=== PATIENT | male | born 1930 | race Caucasian/White ===

== ENCOUNTER 2016-11-10 23:39 | Inpatient (IN) | payer MEDICARE, OTHER ==
--- NOTE | ~2016-11-10 | DS ---
Discharge Summary [address] [place]. [address] NAME: HAVEN SHANKS : [birth year] STATUS : DIS IN PAT#: [id number] AGE: 85 ADM/REG DATE : 11/11/16 MR#: [id number] REPORT SERV DATE: 12/07/16 DICTATED BY: GREG ROONEY DATE: 12/06/16 REPORT STATUS : Draft TRANSCRIBED BY: MODL DATE: 12/06/16 ADMISSION DATE: 11/11/2016 DISCHARGE DATE: 12/06/2016 DISCHARGE DIAGNOSES: 1. Recurrent bilateral aspiration pneumonia. 2. Acute on chronic hypoxic respiratory failure. 3. Oropharyngeal dysphagia. 4. Severe chronic obstructive pulmonary disease. 5. Acute exacerbation of chronic pulmonary disease. 6. Type 2 diabetes mellitus with periods of hyperglycemia and hypoglycemia, currently stable. 7. Anemia of chronic disease. 8. Anemia of acute blood loss. 9. Occult blood gastrointestinal bleeding. 10.Paroxysmal atrial fibrillation. 11.Acute kidney injury, now resolved. 12.Depression. 13.Frailty. 14.Debility. 15.Cognitive impairment, most likely dementia. 16.Hearing impairment. 17.Lung mass to be followed in the outpatient setting by Dr. Solomon Fleming. 18.Coronary artery disease, status post CABG. 19.Osteoarthritis. CONSULTANTS DURING THIS HOSPITALIZATION: 1. Kiran Thompson M.D., of Pulmonology. 2. Chris Spence M.D., of Gastroenterology. INVASIVE PROCEDURES DONE DURING THIS HOSPITALIZATION: None. HISTORY OF PRESENT ILLNESS: The patient is an 85-year-old male, admitted to the hospital with altered mental status. For detailed history and physical exam, please see note dictated by Dr. Tom Vo on 11/11/2016. HOSPITAL COURSE: After being admitted to the hospital, initially this patient was seen by Dr. Errol Cervantes. Please refer to interim summary dictated by Dr. Cervantes on 11/18/2016. Then this patient was seen by Syed Reynolds NP, along with Dr. Nikolas Brown. Please refer to interim summary dictated by Syed Reynolds NP, on 11/26/2016. Then this patient was followed by Dr. Chris Champagne. Please refer to interim summary dictated by Dr. Champagne on 12/02/2016. I took over this patient's care on 12/04/2016. This patient was doing relatively well. He is still requiring 5 L of O2. His pneumonia had been treated with 8 days of IV vancomycin and Zosyn. So we have discontinued his antibiotics. He remained fever free. His white count is normal. His blood count has remained stable. We did give him 1 unit of PRBC just to help him get more oxygenation. I had a long discussion Discharge Summary [address] [place]. [address] NAME: HAVEN SHANKS : [birth year] STATUS : DIS IN PAT#: [id number] AGE: 85 ADM/REG DATE : 11/11/16 MR#: [id number] REPORT SERV DATE: 12/07/16 DICTATED BY: GREG ROONEY DATE: 12/06/16 REPORT STATUS : Draft TRANSCRIBED BY: MONICO DATE: 12/06/16 with the daughter who did not want the patient to go to a longterm facility. This patient did well with Physical Therapy. So we recommended rehab. [facility] the patient based on his oxygen requirement. However, [facility] was able to manage it because his oxygen requirement now is down to about 4 L. He is tolerating a diet. He remained stable otherwise and is being discharged in stable condition. DISCHARGE DISPOSITION: To rehab. DISCHARGE ACTIVITY: Per facility. DISCHARGE DIET: Low sodium, 1800-calorie [employer] diet. DISCHARGE MEDICATIONS: Cymbalta 60 mg once daily, Lipitor 40 mg once daily, Cardizem CD 180 mg once daily, Colace 100 mg twice daily, NovoLog 6 units subcu prior to each meal and sliding scale, Lantus 25 units subcu once daily, MiraLax one packet with 8 ounces of water daily, Florastor one capsule twice daily, multivitamins one tablet daily, Namenda 10 mg twice daily, [place]-3 fish oil 1000 mg capsule daily, Brovana 15 mcg neb twice daily, Pulmicort 1 mg neb twice daily, DuoNeb q.4 hours while awake, Crestor 20 mg once at bedtime, aspirin 81 mg daily, ramipril 2.5 mg p.o. daily, tinidazole 250 mg as directed, vitamin D 1000 units once daily. DISCHARGE FOLLOWUP: With Dr. Esteban Caro, post rehab. More than 35 minutes spent planning this patient's discharge, reconciling medications, writing prescriptions, discussing hospital care, and followup with the patient, with the daughter over the phone, and arranging proper discharge and documenting this discharge. RUTHANN/MONICO Greg Rooney M.D. / [id number] CC: Tejinder You D.O. Froilan B. Joves, MD Christopher S Chandler, NP David Dodson, M.D. [facility]
--- NOTE | ~2016-11-10 | IDS ---
Interim Discharge Summary [facility] [address] [place]. [address] NAME: HAVEN SHANKS : [birth year] STATUS : [facility] [id number] AGE: 85 ADM/REG DATE : 11/11/16 MR#: [id number] REPORT SERV DATE: 12/02/16 DICTATED BY: MELVIN CHAMPAGNE DATE: 12/02/16 REPORT STATUS : Draft TRANSCRIBED BY: MODL DATE: 12/02/16 ADMISSION DATE: 11/11/2016 DISCHARGE DATE: Interim period 11/27/2016 through 12/02/2016. CURRENT DIAGNOSES: 1. Recurrent bilateral aspiration pneumonia. 2. Acute on chronic hypoxemic respiratory failure. 3. Oropharyngeal dysphagia. 4. Severe chronic obstructive pulmonary disease. 5. Acute exacerbation of chronic obstructive pulmonary disease with aspiration. 6. Type 2 diabetes with periods of hyperglycemia and hypoglycemia, current improved blood sugar control off basal insulin. 7. Anemia of chronic disease. 8. Acute blood loss anemia. 9. Occult gastrointestinal bleeding. 10.Paroxysmal atrial fibrillation. 11.Acute kidney injury, improved. 12.Depression. 13.Frailty. 14.Debility. 15.Cognitive impairment. 16.Hearing impairment. 17.Lung masses to be followed by outpatient early childhood associate, Dr. Parker Fleming, per previous discussions documented in record. 18.Coronary artery disease, post CABG. 19.Osteoarthritis, both peripheral and axial. INTERIM SUMMARY: When initially seen by the undersigned on 11/27/2016, he had no cough or dyspnea and had no pain complaints. He did have some anorexia. He had received during his hospitalization five days of Zithromax, three days of Rocephin, and nine days of Zosyn having been off since 11/22/2016 after clinical improvement of his initial aspiration pneumonia. Disposition plans to rehab were pending. On 11/27/2016, his procalcitonin had increased to 3.65, last being 0.18 on 11/19/2016. In addition, his white blood cell count was 14,000 having been 8.5 on 11/23/2016. A chest x- ray showed slight increase in bilateral infiltrates primarily in the perihilar regions. It was felt that he had a recurrent aspiration pneumonia. Cultures were obtained. He was started on broad-spectrum antimicrobial therapy with vancomycin and Zosyn. Over the course of this interim, he has felt about the same although communication is hindered by significant hearing impairment. His procalcitonin has fallen to 2.3 today and Interim Discharge Summary [address] [address] NAME: HAVEN SHANKS : [birth year] STATUS : ADM IN PAT#: [id number] AGE: 85 ADM/REG DATE : 11/11/16 MR#: [id number] REPORT SERV DATE: 12/02/16 DICTATED BY: MELVIN CHAPMAGNE DATE: 12/02/16 REPORT STATUS : Draft TRANSCRIBED BY: MODShane DATE: 12/02/16 white blood cell count 5.7. His chest x-ray shows mild improvement. His blood cultures done on the 11/27/2016 were no growth. Current plan is to complete seven days of antimicrobial therapy. Speech Therapy was reconsulted for recommendations due to my concern for re-aspiration. Additional measures were provided. He developed some periods of hypoglycemia with basal insulin use. Basal insulin has been discontinued. Blood sugar control is satisfactory. Initial disposition planning had been for [facility] when last seen by them on 11/27/2016. No beds were available on 11/27/2016 or 11/28/2016. A re-update is planned for 12/03/2016 given his current level of improvement. DD/MONICO Melvin Champagne M.D. / [id number] CC: Tejinder Beckett D.O.
--- NOTE | ~2016-11-10 | CN ---
Consultation Report [address] [place]. [address] NAME: HAVEN SHANKS : [birth year] STATUS : ADM IN PAT#: [id number] AGE: 85 ADM/REG DATE : 11/11/16 MR#: [id number] REPORT SERV DATE: 11/17/16 DICTATED BY: MELVIN GARCIA DATE: 11/17/16 REPORT STATUS : Draft TRANSCRIBED BY: MODShane DATE: 11/17/16 CONSULTATION NOTE DATE OF CONSULTATION: ATTENDING PHYSICIAN: Dr. Rooney. HISTORY OF PRESENT ILLNESS: This is an 85-year-old male, I am seeing for Dr. Zeus Ruff, admitted with encephalopathy, UTI, history of dementia, also he has been found to have pneumonia on CT, he has COPD on home O2, he is diabetic, past history of CVA, history of Hepatitis C, history of coronary artery disease, status post CAB, he has had knee, and hand surgery in the past. SOCIAL HISTORY: Negative EtOH and nicotine. FAMILY HISTORY: Negative for colon cancer. LABORATORY DATA: Hemoglobin on admission was 12.9, dropped down to 10.4, then back up to 11.7, and down 10.4. And then down to 9.5, and then 9.0 today. Stool guaiacs were checked and were positive. He has had a brown stool with no GI complaints. He has passed a swallowing study. His white count is 9000, platelets 156,000. Acute renal insufficiency that is improved. PHYSICAL EXAMINATION: GENERAL: Demented, but alert white male. HEENT: Anicteric. NECK: Negative. CHEST: Scattered rhonchi. HEART: Regular rate and rhythm without murmur or gallop. ABDOMEN: Soft and nontender. Bowel sounds are active. EXTREMITIES/NEUROLOGIC: Pertinent for his dementia. ASSESSMENT: 1. Urinary tract infection. 2. Dementia. 3. Pneumonia. 4. Coronary artery disease, status post CAB. 5. Diabetes mellitus. 6. Hepatitis C. 7. Past history of Clostridium difficile. 8. Chronic obstructive pulmonary disease on home O2. 9. Anemia with decreasing H and H, brown stool, guaiac positive. SUGGESTION: Consultation Report [address] [address] NAME: HAVEN SHANKS : [birth year] STATUS : ADM IN PAT#: [id number] AGE: 85 ADM/REG DATE : 11/11/16 MR#: [id number] REPORT SERV DATE: 11/17/16 DICTATED BY: MELVIN GARCIA DATE: 11/17/16 REPORT STATUS : Draft TRANSCRIBED BY: MONICO DATE: 11/17/16 1. We will begin Protonix. 2. Follow up H and H. 3. Continue followup stool and for any symptoms. 4. Consider possibly an EGD depending on the above. We will continue to follow with you. CALVIN/MONICO Melvin Garcia M.D. / [id number] CC: MD Esteban Howe D.O. Henry Paik, M.D. Subhash Virani, M.D.
--- NOTE | ~2016-11-10 | CN ---
Consultation Report [facility] [address] [place]. [address] NAME: HAVEN HUBER : [birth year] STATUS : ADM IN [facility]#: [id number] AGE: 85 ADM/REG DATE : 11/11/16 MR#: [id number] REPORT SERV DATE: 11/21/16 DICTATED BY: LM THOMPSON IV DATE: 11/21/16 REPORT STATUS : Draft TRANSCRIBED BY: MODL DATE: 11/21/16 PULMONARY CONSULTATION. DATE OF CONSULTATION: 11/21/2016 REQUESTING PHYSICIAN: Dr. Reynolds. REASON FOR REQUEST: Nodular pulmonary infiltrates. HISTORY OF PRESENT ILLNESS: History was obtained from the records and somewhat from the patient. I attempted to contact family on their phones and there was no answer with the calls immediately going to voicemail or answering machine. Mr. Huber is an 85-year-old [place] male with a history of coronary artery disease, diabetes mellitus, COPD, dementia, reported hepatitis C, and past C diff colitis, who was admitted with worsening encephalopathy with findings of an Enterococcus and Proteus urinary tract infection, now with abnormal chest CT scan and enlarging left pleural effusion. The patient was admitted on 11/11 with worsening of his baseline mental status. He had previously had similar symptoms and was secondary to urinary tract infection for which the daughter initiated ciprofloxacin. He initially got slightly better, though continued to have worsening encephalopathy for which he was brought to the emergency room. He had urine that was consistent with an infection with subsequently growing Enterococcus and ESBL Proteus for which he was initiated initially on ceftriaxone and azithromycin for a left lower lobe infiltrate, switched to Zosyn. He did complete five days of azithromycin therapy. He continued to have worsening infiltrate on chest radiograph for which a chest CT scan was obtained, which demonstrated a lobulated nodule in the left upper lobe with very severe emphysematous changes. A somewhat loculated left greater than right pleural effusion and atelectasis or infiltrates with two nodular densities at the right base. A repeat CT scan was obtained four days later, which demonstrated the persistent nodular densities possibly slightly worse at the right base with increasing loculated left pleural effusion. We are asked to comment on the current findings. The patient clinically has improved with less encephalopathy. He has never had an elevated white blood cell count nor an elevated procalcitonin level. He reports no use of supplemental oxygen, however, the records state he is on supplemental oxygen at home. Listed on his medications are no bronchodilator medications. PULMONARY HISTORY: Remarkable for no history of childhood asthma, known adult obstructive lung disease, or previous pneumonia. He has a 60-pack year smoking history, having quit by his report 10 years ago. He is unsure about his immunization status. PAST MEDICAL HISTORY: 1. Coronary artery disease. 2. Diabetes mellitus. 3. COPD. 4. Hepatitis C. Consultation Report [address] [place]. [address] NAME: HAVEN HUBER : [birth year] STATUS : ADM IN PAT#: [id number] AGE: 85 ADM/REG DATE : 11/11/16 MR#: [id number] REPORT SERV DATE: 11/21/16 DICTATED BY: LM THOMPSON IV DATE: 11/21/16 REPORT STATUS : Draft TRANSCRIBED BY: MONICO DATE: 11/21/16 5. C diff colitis in the past. 6. Dementia. SURGERIES: He has had, 1. Coronary artery bypass grafting. 2. Bilateral knee replacements. 3. Left hand surgery. ALLERGIES: LISTED ARE AMBIEN AND ARICEPT, THOUGH THE SPECIFIC REACTIONS ARE NOT DOCUMENTED. CURRENT MEDICATIONS: Cardizem CD 180 mg daily, Colace 100 mg twice a day, Cymbalta 60 mg daily, DuoNebs every four hours, Florastor one twice a day, Humibid 600 mg q.8 hours, Levemir 25 units at bedtime, Lipitor 40 mg daily, MiraLAX one packet daily, Namenda 10 mg twice a day, NovoLog six units before meals, level 2 insulin sliding scale, Protonix 40 mg daily, Senokot two tabs daily, multivitamin daily, Zosyn 3.375 g q.8 hours. SOCIAL HISTORY: Remarkable for the tobacco use as above. The patient denies alcohol or illicit drug use. He is and lives with his daughter. FAMILY HISTORY: Remarkable for several members listed as diabetes and the patient cannot expand on this. REVIEW OF SYSTEMS: 14 systems reviewed and pertinent positives as noted above. PHYSICAL EXAMINATION: GENERAL: This is a pleasant elderly [place]ron[place] male, in no current respiratory distress. He does have a junky cough. VITAL SIGNS: Temperature 98.1, respiratory rate is 20, saturations 91% on 3 L via nasal cannula, pulse is 86, and blood pressure 131/59. HEENT: Normocephalic, atraumatic. Extraocular movements are intact. Pupils react to light. Sclerae and conjunctivae normal. He has a nasal cannula in place. He has a Mallampati III airway with some narrowing of the posterior pharyngeal space. NECK: Without any palpable lymphadenopathy or thyromegaly. CHEST: The patient has decreased breath sounds at both apices. There are decreased breath sounds at the bases. There are some inspiratory crackles with bronchial breath sounds in the left base. No current wheezes are noted. CARDIOVASCULAR: Jugular venous pulsations are at the angle of jaw in the supine position. He has 1+ carotid upstrokes with no obvious bruit. He has a distant regular S1, S2 with a 2/6 systolic murmur at the left sternal border. No clear S3 is noted. Peripheral pulses are diminished. ABDOMEN: Soft and nontender. There are hypoactive bowel sounds. There is no palpable hepatosplenomegaly or mass. EXTREMITIES: Demonstrate scars over both knees. There is no cyanosis, clubbing, or palpable cords. Consultation Report [address] [place]. [address] NAME: HAVEN HUBER : [birth year] STATUS : ADM IN [facility]#: [id number] AGE: 85 ADM/REG DATE : 11/11/16 MR#: [id number] REPORT SERV DATE: 11/21/16 DICTATED BY: LM THOMPSON IV DATE: 11/21/16 REPORT STATUS : Draft TRANSCRIBED BY: MONICO DATE: 11/21/16 NEUROLOGIC: The patient is able to move extremities and answer some simple questions. He knows his name. He knows past history, though he does not know where he is or the date. LABORATORY DATA: Chest CT scan demonstrates the increasing partially loculated left pleural effusion. There is infiltrate and atelectasis at both bases, left greater than right. There is a lobulated nodule in the left upper lobe, not noted on a [address] scan. CBC: Hemoglobin 8.3, hematocrit 25.4, platelet count was 240,000, white blood cell count 7.5. Chemistry: Sodium 146, potassium 4.7, chloride 111, bicarb 26, BUN 24, creatinine 1.34, glucose 178. Liver panel is otherwise remarkable for an AST of 50. TSH was normal at 1.67. ASSESSMENT AND PLAN: 1. Respiratory. The patient has severe emphysematous changes noted on the CT scan. DuoNebs will be given via EzPAP q.4 hours while awake and q.4 hours as needed. We will add Brovana unit dose twice a day and Pulmicort twice a day 1 mg. Chest x-ray will be obtained tomorrow to evaluate for the pleural fluid. Family will need to decide how aggressive we want to be with the patient to include putting the patient through a thoracentesis. We will recommend following the nodular infiltrates, which very well could be malignancy particularly the left upper lobe, however, it could represent nodular pneumonia. With the patient's comorbid illnesses, I would not proceed to biopsy particularly at this time. Oxygen will be provided as needed to maintain saturation in the 90% to 94% range. 2. Gastrointestinal. Head of bed at 30 to 45 degrees. I am concerned that some of this could represent aspiration particularly prior to use of the thickening products. The patient needs to be completely upright when eating and have assistance. 3. Infectious Disease. Would complete eight days of Zosyn particularly with a non- elevated white blood cell count or procalcitonin level. Urine antigen sent for Legionella as well as Pneumococcus. TB QuantiFERON test will be obtained with his nationality as well as fighting in World War II and the [place] War. 4. Cardiovascular. BNP will be obtained, though I do not believe this is volume overload. 5. Neurologic. Ammonia and B12 levels will be obtained. 6. Hematologic. Heparin subcutaneous for deep vein thrombosis prophylaxis. 7. Endocrinologic. We will continue to adjust insulin and attempt to keep blood sugars less than 160 because of his infection. Thank you for consulting us. We will follow the patient with you. NM/MODL mL Thompson IV, M.D. / [id number] Consultation Report [address] [place]. [address] NAME: HAVEN HUBER : [birth year] STATUS : ADM IN [facility]#: [id number] AGE: 85 ADM/REG DATE : 11/11/16 MR#: [id number] REPORT SERV DATE: 11/21/16 DICTATED BY: LM THOMPSON IV DATE: 11/21/16 REPORT STATUS : Draft TRANSCRIBED BY: MONICO DATE: 11/21/16 CC: Tejinder Barrera D.O.
--- NOTE | ~2016-11-10 | IDS ---
Interim Discharge Summary [facility] [address] [place]. [address] NAME: HAVEN SHANKS : [birth year] STATUS : ADM IN PAT#: [id number] AGE: 85 ADM/REG DATE : 11/11/16 MR#: [id number] REPORT SERV DATE: 11/26/16 DICTATED BY: SYED RICHARDSON DATE: 11/26/16 REPORT STATUS : Draft TRANSCRIBED BY: MODL DATE: 11/26/16 ADMISSION DATE: 11/11/2016 DISCHARGE DATE: CURRENT INTERIM DIAGNOSES: 1. Pneumonia, bilateral, present on admission that is resolving, it is likely aspiration pneumonia. 2. Left pleural effusion, status post thoracentesis performed on 11/23/2016, 400 mL of fluid removed. 3. Severe emphysema. 4. Anemia of chronic and also blood loss with positive Hemoccult. 5. Dementia. 6. Diabetes type 2. 7. Acute kidney injury, resolved. Most recent creatinine is 1.11. HISTORY OF PRESENT ILLNESS: This is a pleasant unfortunate 85-year-old gentleman who presented with altered mental status. Please see the initial H and P of Dr. Tom Vo as the patient was admitted to the Hospitalist Service for further evaluation and treatment. Please also see the interim discharge summary of Dr. Murillo as this interim summary will cover the dates of 11/19 until 11/26/2016. CONSULTANTS DURING THIS ADMISSION: Include GI, Dr. Chris Spence; Pulmonary Service, Dr. Thompson. CONTINUATION TO HOSPITAL COURSE: The patient had undergone a CT of the chest showing continued dense consolidation throughout the left lower lobe and posterior right lower lobe, also a mass-like opacity in the posterior lateral aspect of the right upper lobe, and findings concerning for potential underlying primary lung malignancies or inflammation. A moderate loculated left pleural effusion predominantly adjacent to the left upper lobe, severe emphysema in the lungs. The patient was currently undergoing IV antibiotic treatment with Zosyn, this was continued. Also a consult was placed to Pulmonary Services for further evaluation of his persistent pneumonia and consideration for thoracentesis as well. He did have a concern and is high risk for aspiration that is likely predisposing him to inflammation and pneumonia. I did discuss with the family the findings of the CT scan and had a lengthy discussion with the daughter in regard to pursuing thoracentesis, and she wished that I speak with Dr. Parker Fleming, the patient's outpatient bed maker, which I did and he agreed with a thoracentesis at this time, and so patient was sent for the CT-guided thoracentesis in Interventional Radiology where 400 mL was removed and sent for cytology and fluid culture. His antibiotics were after discussion with Dr. Thompson, discontinued given that the patient was afebrile and his white blood cells are within normal limits and a procalcitonin of 0.18. He was continued on nebulizers and aggressive pulmonary toilet and aspiratory precautions and continued to improve symptomatically after the thoracentesis. He had been evaluated by GI, who did not recommend any further procedures during this admission. His hemoglobin and hematocrit have been low, but stable, and most recently, hemoglobin and hematocrit of 8.7 and 27.3. He is currently being evaluated for Siskin SubAcute and hopefully to have a bed soon. I have decided to trial him on a very low-dose Interim Discharge Summary [address] [address] NAME: HAVEN SHANKS : [birth year] STATUS : ADM IN [facility]#: [id number] AGE: 85 ADM/REG DATE : 11/11/16 MR#: [id number] REPORT SERV DATE: 11/26/16 DICTATED BY: SYED RICHARDSON DATE: 11/26/16 REPORT STATUS : Draft TRANSCRIBED BY: MODL DATE: 11/26/16 diuretic of torsemide and continue aspiration precautions and continue mobilization, and aggressive pulmonary toilet as he has completed his antibiotic course. Of note, patient is extremely hard of hearing as well and currently pending approval for Siskin SubAcute and will follow up with his bed maker Dr. Parker Fleming in six to eight weeks. [facility] Syed Richardson NP / [id number] CC: MD Esteban Layton II, D.O.
--- NOTE | ~2016-11-10 | IDS ---
Interim Discharge Summary [facility] [address] [place]. [address] NAME: HAVEN SHANKS : [birth year] STATUS : [facility]#: [id number] AGE: 85 ADM/REG DATE : 11/11/16 MR#: [id number] REPORT SERV DATE: 11/18/16 DICTATED BY: DATE: REPORT STATUS : Draft TRANSCRIBED BY: MODL DATE: 11/18/16 ADMISSION DATE: 11/11/2016 DISCHARGE DATE: CURRENT INTERIM DISCHARGE DIAGNOSES: 1. Chronic hypoxemia. 2. Acute kidney injury. 3. Extended spectrum beta-lactamase urinary tract infection. 4. Diabetes mellitus type 2. 5. Left lower lobe pneumonia. 6. Anemia. 7. Alzheimer's dementia. 8. Chronic obstructive pulmonary disease. 9. Gastrointestinal bleed. 10.Coronary artery disease, status post coronary artery bypass graft. 11.History of hepatitis C. 12.History of Clostridium difficile. 13.Chronic thrombocytopenia. HISTORY OF PRESENT ILLNESS: This is an 85-year-old gentleman with a history of coronary artery disease, diabetes, COPD, and Alzheimer's dementia who presents with altered mental status. The patient does live with his daughter and son-in-law. The patient started developing altered mental status three to four days prior to admission. The patient had a urinalysis done upon admission which showed he had ESBL and his chest x-ray showed that he had a left lower lobe community-acquired pneumonia. The patient is oxygen dependent on 2 to 3 L at home. PROCEDURES AND IMAGIN. 11/13/2016, CT of the abdomen and pelvis without contrast, showed no evidence of GI or obstruction with borderline cardiomegaly and probable anemia. The patient had bilateral infiltrates and a recommendation was made to follow after clearing to exclude a tumor in the left lung base. On 11/10/2016, a portable chest x-ray showed a left perihilar and left lung base infiltrate. The patient has had blood cultures done x4 days that have been negative. On 11/15/2016, CT of the chest without contrast showed extensive airspace disease with consolidation in both lower lobes, left greater than right. The findings may be related to pneumonia or aspiration. 2. Additional nodular opacities in the right lower lobe and in the left upper lobe. The patient has had three stools for guaiac that have been positive, and the patient has been having his hemoglobin trending downwards. His initial hemoglobin upon admission was 12.9 and it is now down to 8.5. GI was consulted on 11/17/[address] Spence, who has seen the patient, but is hesitant to do any aggressive treatment due to the patient's age and multiple comorbidities. In the last four days, the patient's hemoglobin has gone from 10.4 to 9.5 to 9.0 to 8.5. The patient has not received any IV fluids besides his antibiotics during this time. There has been some difficulty stabilizing his blood sugar due to the patient's volatile intake. When Levemir insulin was increased, the patient then had a mild hypoglycemic event in the 60s due to fact Interim Discharge Summary [address] [address] NAME: HAVEN SHANKS : [birth year] STATUS : ADM IN PAT#: [id number] AGE: 85 ADM/REG DATE : 11/11/16 MR#: [id number] REPORT SERV DATE: 11/18/16 DICTATED BY: DATE: REPORT STATUS : Draft TRANSCRIBED BY: MODL DATE: 11/18/16 that he did not eat supper. We are attempting to give with meal insulin and giving a lower dose of Levemir to prevent this happening during the night. The patient is on Namenda for his Alzheimer's dementia. The patient is on chronic Florastor for his history of C. diff. The patient is currently on Zosyn to cover his pneumonia and his UTI. 3. The patient's chest x-ray on 11/18/2016 showed increased consolidation and/or pleural effusion of the left base. 4. The patient is on aspiration precautions following a swallow study that was done on 11/15/2016 which advised mechanical soft diet with chopped ground meats with gravy and nectar thick liquids. The patient is also to use only normal size straws. Due to the patient's increased pneumonia, despite Zosyn, we are getting a modified barium swallow on 11/19/2016 to reassess his swallowing status. Multiple attempts to have been made to contact the family, messages have been left on home phone and cell phones to have return phone call to try to ascertain the patient's code status due to his declining hemoglobin and overall health status. The patient was initially started on Rocephin and Zithromax for his UTI, but was then changed on 11/13/[address] Rooney. The patient has been taken care of by Dr. Yasmany Amin 11/10/2016 and 11/11/2016, Dr. Greg Rooney 11/12/2016, Dr. Champagne 11/13/2016, Rochelle Traylor, nurse-practitioner on 11/14/2016 and 11/15/2016 and 11/16/2016. The patient has been taken care of by myself, Love Marroquin, from 11/17/2016 through 11/19/2016. The patient is able to get up to a chair with one to assist. We will follow the modified barium swallow study and continue trying to contact the patient's family regarding the patient's code status and possible need for palliative care versus hospice either in the home setting or the patient in a skilled facility. The patient's procalcitonin is 0.93 at this time. SLC/MODL Love Marroquin NP / [id number] CC: MD Esteban Howe D.O.
--- NOTE | ~2016-11-10 | HP ---
History And Physical [facility] [id number] [place]. [address] NAME: HAVEN SHANKS : [birth year] STATUS : [facility]M [facility]#: [id number] AGE: 85 ADM/REG DATE : 11/11/16 MR#: [id number] REPORT SERV DATE: 11/11/16 DICTATED BY: TOM VO DATE: 11/11/16 REPORT STATUS : Draft TRANSCRIBED BY: MODL DATE: 11/11/16 DATE OF ADMISSION: 11/11/2016 CHIEF COMPLAINT: Altered mental status. HISTORY OF PRESENT ILLNESS: This is an 85-year-old gentleman with a history of coronary disease, diabetes, COPD, and dementia, presenting with an altered mental status. The patient was not able to provide any valuable history, and the patient's son-in-law who was at bedside who provided the history. I also carefully reviewed existing medical records. The patient apparently developed altered mental status since about 3 to 4 days ago. It appeared as though the patient was living in the past, trying to get ready to go to work, and the patient did not recognize the son-in-law. The patient at the same time was quite shaky. The patient's daughter remembered that he was similar when he had urinary tract infection in the past, and the family happened to have some Cipro at home and thus they started the patient on Cipro on their own. The patient seemed to have gotten slightly better, but the patient still continued to be encephalopathic, and thus family decided to bring him to the ER for further evaluation and care. Other than the confusion, the patient really did not have any other acute focal symptoms. The patient did not have any fevers or chills, and he did not have any pain anywhere. In the ER, the patient was found to be afebrile and hemodynamically stable. Initial lab evaluation was fairly benign. Urinalysis was in fact positive for urinary tract infection, and chest x-ray also appeared he had left-sided pneumonia. Internal Medicine consultation was requested for admission of the patient for further evaluation and care. REVIEW OF SYSTEMS: The patient did has not had any fevers or chills. Also, 14-point review of systems reviewed and negative other than mentioned above. MEDICATIONS: The list is still pending at this time. ALLERGIES: 1. AMBIEN. 2. ARICEPT. PAST MEDICAL HISTORY: 1. Oxygen-dependent chronic obstructive pulmonary disease, at baseline 2 to 3 L. 2. Coronary artery disease. 3. Insulin-dependent diabetes type 2. 4. Mild dementia at baseline. 5. History of C. diff. 6. Hepatitis C. 7. History of UTI. 8. History of pancreatitis. History And Physical [address] [address] NAME: HAVEN SHANKS : [birth year] STATUS : [facility]#: [id number] AGE: 85 ADM/REG DATE : 11/11/16 MR#: [id number] REPORT SERV DATE: 11/11/16 DICTATED BY: TOM VO DATE: 11/11/16 REPORT STATUS : Draft TRANSCRIBED BY: MONICO DATE: 11/11/16 PAST SURGICAL HISTORY: 1. CABG. 2. Bilateral knee replacements. 3. Left hand surgery. FAMILY HISTORY: Diabetes. SOCIAL HISTORY: The patient does not smoke, drink alcohol, or use any illicit drugs. The patient lives at home with his daughter and son-in-law. The patient's son-in-law is at bedside here in the ER. PHYSICAL EXAMINATION: VITAL SIGNS: Temperature 98.1, blood pressure 119/54, pulse 102, respiratory rate is 25, saturating 92% on room air. CONSTITUTIONAL: On physical examination, the patient is alert, but pleasantly disoriented. The patient has no focal neurologic deficits. GENERAL: The patient is awake, does not appear to be in acute distress, and he is cooperative. NECK: No JVD. No lymphadenopathy. Normal thyroid. CHEST: No midline sternotomy scar and no tenderness to palpation. LUNGS: Clear to auscultation bilaterally with normal respiratory effort on room air. CARDIOVASCULAR: Regular rate and rhythm with no murmurs, rubs, or gallops, and PMI is nondisplaced. ABDOMEN: Soft and nontender with active bowel sounds and no organomegaly. EXTREMITIES: No edema. Normal distal pulses. No calf tenderness. SKIN: Clean, dry, warm, and intact. LABORATORY DATA: Sodium is 143, potassium 3.8, chloride 102, BUN 23, creatinine 1.43, glucose 113, calcium 9.2. LFTs are within normal limits. White blood cell count is 7.2, hemoglobin 12.9, platelets 144, lactate is 2.4. Urinalysis was positive for nitrites, moderate amount of leukocyte esterase, 61 white blood cells, and many bacteria. Chest x-ray is personally interpreted and it showed a left lower lobe pneumonia. ASSESSMENT: This is an 85-year-old gentleman with a history of oxygen-dependent chronic obstructive pulmonary disease, coronary artery disease, diabetes, and dementia, presenting with acute encephalopathy. 1. Acute encephalopathy. 2. Urinary tract infection. 3. Acute kidney injury. 4. Left lower-lobe community-acquired pneumonia. 5. Oxygen-dependent chronic obstructive pulmonary disease, at 2 to 3 L at baseline. 6. Coronary artery disease. 7. Diabetes type 2. 8. History of C. diff. 9. Mild dementia. PLAN: My plan is to admit the patient under telemetry monitoring. The patient will be History And Physical [address] [address] NAME: HAVEN SHANKS : [birth year] STATUS : [facility]#: [id number] AGE: 85 ADM/REG DATE : 11/11/16 MR#: [id number] REPORT SERV DATE: 11/11/16 DICTATED BY: TOM VO DATE: 11/11/16 REPORT STATUS : Draft TRANSCRIBED BY: MONICO DATE: 11/11/16 empirically started on Rocephin and Zithromax. The patient will also be given oxygen support and bronchodilator therapy. I will check blood cultures, urine cultures, and sputum cultures as well as procalcitonin level and urinary antigens for strep and Legionella. The patient will also be given IV fluid resuscitation. In's and out's as well as electrolytes and renal function will be closely monitored as the patient is given fluid resuscitation. Given the patient's history of C. diff, the patient will be closely monitored for development of diarrhea. I will also give the patient probiotics in efforts to help with potential C. diff. Otherwise, for the rest of the stable past medical conditions including coronary artery disease, diabetes, and mild dementia, I will continue home medications. Standard DVT prophylaxis. The patient is full code at this time. SIMÓN/MONICO Tom Vo MD / [id number] CC: Esteban Caro D.O.
[2016-11-10 23:31] LABS: BASOPHILS 0.1 %; BASOPHILS ABSOLUTE 0.01 10/3/uL (0.0-0.16); EOSINOPHILS 1.4 %; ER CBC TAT 0 Hrs 07 Mins; HEMOGLOBIN 12.9 g/dL (13.6-17.8); IMMATURE GRANULOCYTES 0.6 %; IMMATURE GRANULOCYTES ABSOLUTE 0.04 10/3/uL (0.0-0.11); LYMPHOCYTES 17.9 %; LYMPHOCYTES ABSOLUTE 1.28 10/3/uL (0.67-4.30); MEAN CORPUS HGB CONC 33.7 g/dL (32.0-36.0); MEAN CORPUSCULAR HEMOGLOB 30.5 pg (26.0-34.0); MEAN CORPUSCULAR VOLUME 90.5 fL (80-100); MEAN PLATELET VOLUME 8.8 fL (9.2-13.0); MONOCYTES 11.7 %; MONOCYTES ABSOLUTE 0.84 10/3/uL (0.21-1.20); NEUTROPHILS 68.3 %; PLATELET COUNT 144 10/3/uL (150-400); RBC DISTRIBUTION WIDTH 13.9 % (12.0-16.0); RED CELL COUNT 4.23 10/6/uL (4.7-6.1); WHITE BLOOD CELLS 7.2 10/3/uL (4.5-10.5)
[2016-11-10 23:32] LABS: HEMATOCRIT 38.3 % (40.0-51.0); MANUAL DIFF NO %
[~2016-11-10 23:39] MED LIST: ALLEGRA180 PO; ALTA2.5 PO; ASAB PO; CEFT2 PO; CEREFOLI1 PO; CRESTOR20 MG PO; CYMBALTA60 PO; FISH-EPA1000 MG; FLORASTOR; HALF81 PO; HEMATINIC PL PO; HEMATINIC/FA OR; JANUVIA100 MG PO; JANUVIA50 PO; LANTUS SC; LORT7 PO; MUCINEX; MULTIPLE VIT PO; NAMENDA10 MG PO; NOVOLOG SC; PREV30 PO; PROLOP100 PO; RAZADYNE ER24 MG PO; SONATA PO; TINDAMAX250 MG; VITAMIN D1000 UNI1 PO; [UNRECOGNIZED DRUG - MIXTURE] PO; [UNRECOGNIZED DRUG - OTHER]; [UNRECOGNIZED DRUG - OTHER] PO; [UNRECOGNIZED DRUG - OTHER] PO
[2016-11-10 23:44] LABS: A/G RATIO 0.8 (0.7-1.9); ALBUMIN 3.2 G/DL (3.5-5.0); ALKALINE PHOSPHATASE 71 U/L (45-117); CALCIUM, SERUM 9.2 MG/DL (8.5-10.4); CHLORIDE, SERUM 102 MMOL/L (96-112); CO2 (CARBON DIOXIDE) 32 MMOL/L (24-34); CREATININE 1.43 MG/DL (0.70-1.30); GFR AFRICAN AMERICAN 51 ML/MIN (>=60); GFR NON AFRICAN AMERICAN 44 ML/MIN (>=60); GLOBULIN 3.9 G/DL (2.5-4.1); POTASSIUM, SERUM 3.8 MMOL/L (3.5-5.3); SGOT(AST) 16 U/L (5-40); SGPT(ALT) 17 U/L (5-65); SODIUM, SERUM 143 MMOL/L (135-148); TOTAL BILIRUBIN 0.6 MG/DL (0-1.2); TOTAL PROTEIN 7.1 G/DL (6.0-8.5)
[2016-11-10 23:46] LABS: LACTATE 2.4 MMOL/L (0.3-2.4)
[2016-11-10 23:47] LABS: BUN (BLOOD UREA NITROGEN) 23 MG/DL (6-23); GLUCOSE, SERUM 113 MG/DL (60-99)
[2016-11-11 00:07] LABS: ASCORBIC ACID (UR NOT ORDER) NEG (NEG); BILIRUBIN, URINE NEGATIVE (NEG); ER URINALYSIS TAT 0 Hrs 00 Mins; KETONE, URINE NEGATIVE (NEG); LEUKOCYTE ESTERASE(NOT OR MOD (NEG); NITRITE (URINE) POS (NEG); WBC (NOT ORDERED) (RFLEX) 61 (0-5)
[2016-11-11 12:32] LABS: BE (BASE EXCESS) 2.2 MEQ/L (0 +/- 2.5); CARBOXYHEMOGLOBIN 1.6 % (0-3); DEVICE NC; HCO3 (ACTUAL BICARBONATE) 25.2 MEQ/L (23-27); HEMOBLOGIN CONTENT 12.7 G/DL (14-18); INSTRUMENT SERIAL # 8087; METHEMOGLOBIN 0.4 % (0-3); O2 CONTENT 16.5 VOL% (18-24); OPERATOR ID 17537; PCO2 (CO2 TENSION) 34 MMHG (35-45); PO2 (O2 TENSION) 68 MMHG (79-93); SAMPLE Arterial; pH 7.49 (7.37-7.43)
[2016-11-12 05:04] LABS: BASOPHILS 0.2 %; BASOPHILS ABSOLUTE 0.01 10/3/uL (0.0-0.16); EOSINOPHILS 2.9 %; EOSINOPHILS ABSOLUTE 0.14 10/3/uL (0.0-0.53); HEMOGLOBIN 10.4 g/dL (13.6-17.8); IMMATURE GRANULOCYTES 0.6 %; IMMATURE GRANULOCYTES ABSOLUTE 0.03 10/3/uL (0.0-0.11); LYMPHOCYTES 19.7 %; LYMPHOCYTES ABSOLUTE 0.94 10/3/uL (0.67-4.30); MEAN CORPUS HGB CONC 33.3 g/dL (32.0-36.0); MEAN CORPUSCULAR HEMOGLOB 30.2 pg (26.0-34.0); MEAN CORPUSCULAR VOLUME 90.7 fL (80-100); MEAN PLATELET VOLUME 8.8 fL (9.2-13.0); MONOCYTES 9.6 %; MONOCYTES ABSOLUTE 0.46 10/3/uL (0.21-1.20); PLATELET COUNT 113 10/3/uL (150-400); RBC DISTRIBUTION WIDTH 13.9 % (12.0-16.0); RED CELL COUNT 3.44 10/6/uL (4.7-6.1); WHITE BLOOD CELLS 4.8 10/3/uL (4.5-10.5)
[2016-11-12 05:05] LABS: HEMATOCRIT 31.2 % (40.0-51.0); MANUAL DIFF NO %
[2016-11-12 05:21] LABS: BUN (BLOOD UREA NITROGEN) 21 MG/DL (6-23); CHLORIDE, SERUM 107 MMOL/L (96-112); CO2 (CARBON DIOXIDE) 29 MMOL/L (24-34); CREATININE 1.09 MG/DL (0.70-1.30); GFR AFRICAN AMERICAN 70 ML/MIN (>=60); GFR NON AFRICAN AMERICAN 61 ML/MIN (>=60); GLUCOSE, SERUM 99 MG/DL (60-99); PHOSPHORUS, SERUM 3.6 MG/DL (2.5-4.5); SODIUM, SERUM 141 MMOL/L (135-148); TROPONIN I <0.02 NG/ML (<0.05)
[2016-11-12 05:22] LABS: ALBUMIN 2.5 G/DL (3.5-5.0); CALCIUM, SERUM 7.9 MG/DL (8.5-10.4); CK-MB 1.1 NG/ML; CPK 38 U/L (0-200)
[2016-11-13 05:33] LABS: BASOPHILS 0.2 %; BASOPHILS ABSOLUTE 0.01 10/3/uL (0.0-0.16); EOSINOPHILS 2.6 %; EOSINOPHILS ABSOLUTE 0.13 10/3/uL (0.0-0.53); HEMATOCRIT 31.5 % (40.0-51.0); HEMOGLOBIN 10.7 g/dL (13.6-17.8); IMMATURE GRANULOCYTES 0.6 %; IMMATURE GRANULOCYTES ABSOLUTE 0.03 10/3/uL (0.0-0.11); LYMPHOCYTES 17.6 %; LYMPHOCYTES ABSOLUTE 0.87 10/3/uL (0.67-4.30); MEAN CORPUSCULAR HEMOGLOB 30.1 pg (26.0-34.0); MEAN CORPUSCULAR VOLUME 88.7 fL (80-100); MONOCYTES 10.1 %; NEUTROPHILS 68.9 %; NEUTROPHILS ABSOLUTE 3.39 10/3/uL (2.02-8.40); PLATELET COUNT 127 10/3/uL (150-400); RBC DISTRIBUTION WIDTH 13.7 % (12.0-16.0); RED CELL COUNT 3.55 10/6/uL (4.7-6.1); WHITE BLOOD CELLS 4.9 10/3/uL (4.5-10.5)
[2016-11-13 05:36] LABS: MANUAL DIFF NO %
[2016-11-13 05:47] LABS: ALBUMIN 2.7 G/DL (3.5-5.0); BUN (BLOOD UREA NITROGEN) 22 MG/DL (6-23); CALCIUM, SERUM 8.6 MG/DL (8.5-10.4); CHLORIDE, SERUM 104 MMOL/L (96-112); CO2 (CARBON DIOXIDE) 25 MMOL/L (24-34); CREATININE 0.94 MG/DL (0.70-1.30); GFR AFRICAN AMERICAN 84 ML/MIN (>=60); GFR NON AFRICAN AMERICAN 73 ML/MIN (>=60); PHOSPHORUS, SERUM 3.2 MG/DL (2.5-4.5); POTASSIUM, SERUM 4.1 MMOL/L (3.5-5.3); SODIUM, SERUM 138 MMOL/L (135-148)
[2016-11-13 05:48] LABS: GLUCOSE, SERUM 145 MG/DL (60-99)
[2016-11-14 06:28] LABS: BASOPHILS 0.2 %; BASOPHILS ABSOLUTE 0.02 10/3/uL (0.0-0.16); HEMOGLOBIN 11.7 g/dL (13.6-17.8); IMMATURE GRANULOCYTES 0.6 %; IMMATURE GRANULOCYTES ABSOLUTE 0.06 10/3/uL (0.0-0.11); LYMPHOCYTES 11.3 %; LYMPHOCYTES ABSOLUTE 1.12 10/3/uL (0.67-4.30); MEAN CORPUS HGB CONC 33.7 g/dL (32.0-36.0); MEAN CORPUSCULAR HEMOGLOB 30.2 pg (26.0-34.0); MEAN CORPUSCULAR VOLUME 89.4 fL (80-100); MEAN PLATELET VOLUME 9.4 fL (9.2-13.0); MONOCYTES ABSOLUTE 0.99 10/3/uL (0.21-1.20); NEUTROPHILS 76.9 %; RBC DISTRIBUTION WIDTH 13.7 % (12.0-16.0); RED CELL COUNT 3.88 10/6/uL (4.7-6.1)
[2016-11-14 06:31] LABS: HEMATOCRIT 34.7 % (40.0-51.0); MANUAL DIFF NO %; PLATELET COUNT 172 10/3/uL (150-400); WHITE BLOOD CELLS 9.9 10/3/uL (4.5-10.5)
[2016-11-14 06:39] LABS: CALCIUM, SERUM 9.1 MG/DL (8.5-10.4); CHLORIDE, SERUM 99 MMOL/L (96-112); CO2 (CARBON DIOXIDE) 27 MMOL/L (24-34); GFR AFRICAN AMERICAN 70 ML/MIN (>=60); GFR NON AFRICAN AMERICAN 60 ML/MIN (>=60); GLUCOSE, SERUM 163 MG/DL (60-99); POTASSIUM, SERUM 4.5 MMOL/L (3.5-5.3); SODIUM, SERUM 137 MMOL/L (135-148)
[2016-11-14 06:43] LABS: BUN (BLOOD UREA NITROGEN) 26 MG/DL (6-23)
[2016-11-15 07:00] LABS: BASOPHILS 0.1 %; BASOPHILS ABSOLUTE 0.01 10/3/uL (0.0-0.16); EOSINOPHILS 0.4 %; EOSINOPHILS ABSOLUTE 0.04 10/3/uL (0.0-0.53); HEMATOCRIT 31.6 % (40.0-51.0); HEMOGLOBIN 10.4 g/dL (13.6-17.8); IMMATURE GRANULOCYTES 0.3 %; IMMATURE GRANULOCYTES ABSOLUTE 0.03 10/3/uL (0.0-0.11); LYMPHOCYTES 9.2 %; MEAN CORPUS HGB CONC 32.9 g/dL (32.0-36.0); MEAN CORPUSCULAR HEMOGLOB 30.1 pg (26.0-34.0); MEAN CORPUSCULAR VOLUME 91.3 fL (80-100); MEAN PLATELET VOLUME 9.3 fL (9.2-13.0); MONOCYTES 8.6 %; MONOCYTES ABSOLUTE 0.84 10/3/uL (0.21-1.20); NEUTROPHILS 81.4 %; NEUTROPHILS ABSOLUTE 7.91 10/3/uL (2.02-8.40); PLATELET COUNT 154 10/3/uL (150-400); RBC DISTRIBUTION WIDTH 14.2 % (12.0-16.0); RED CELL COUNT 3.46 10/6/uL (4.7-6.1); WHITE BLOOD CELLS 9.7 10/3/uL (4.5-10.5)
[2016-11-15 07:01] LABS: MANUAL DIFF NO %
[2016-11-15 07:17] LABS: CALCIUM, SERUM 8.4 MG/DL (8.5-10.4); CHLORIDE, SERUM 104 MMOL/L (96-112); CO2 (CARBON DIOXIDE) 23 MMOL/L (24-34); CREATININE 1.57 MG/DL (0.70-1.30); GFR AFRICAN AMERICAN 45 ML/MIN (>=60); GFR NON AFRICAN AMERICAN 39 ML/MIN (>=60); GLUCOSE, SERUM 149 MG/DL (60-99); POTASSIUM, SERUM 4.2 MMOL/L (3.5-5.3); SODIUM, SERUM 139 MMOL/L (135-148)
[2016-11-15 07:18] LABS: BUN (BLOOD UREA NITROGEN) 36 MG/DL (6-23)
[2016-11-16 04:53] LABS: BUN (BLOOD UREA NITROGEN) 37 MG/DL (6-23); CALCIUM, SERUM 8.6 MG/DL (8.5-10.4); CHLORIDE, SERUM 110 MMOL/L (96-112); CO2 (CARBON DIOXIDE) 23 MMOL/L (24-34); CREATININE 1.41 MG/DL (0.70-1.30); GFR AFRICAN AMERICAN 52 ML/MIN (>=60); GFR NON AFRICAN AMERICAN 44 ML/MIN (>=60); POTASSIUM, SERUM 4.1 MMOL/L (3.5-5.3); SODIUM, SERUM 144 MMOL/L (135-148)
[2016-11-16 04:57] LABS: GLUCOSE, SERUM 202 MG/DL (60-99)
[2016-11-16 05:00] LABS: BASOPHILS 0.1 %; BASOPHILS ABSOLUTE 0.01 10/3/uL (0.0-0.16); EOSINOPHILS 0.7 %; EOSINOPHILS ABSOLUTE 0.06 10/3/uL (0.0-0.53); HEMATOCRIT 29.1 % (40.0-51.0); HEMOGLOBIN 9.5 g/dL (13.6-17.8); LYMPHOCYTES 8.9 %; LYMPHOCYTES ABSOLUTE 0.79 10/3/uL (0.67-4.30); MEAN CORPUS HGB CONC 32.6 g/dL (32.0-36.0); MEAN CORPUSCULAR HEMOGLOB 29.2 pg (26.0-34.0); MEAN CORPUSCULAR VOLUME 89.5 fL (80-100); MEAN PLATELET VOLUME 9.5 fL (9.2-13.0); MONOCYTES 8.3 %; MONOCYTES ABSOLUTE 0.74 10/3/uL (0.21-1.20); NEUTROPHILS ABSOLUTE 7.28 10/3/uL (2.02-8.40); PLATELET COUNT 182 10/3/uL (150-400); RBC DISTRIBUTION WIDTH 14.3 % (12.0-16.0); RED CELL COUNT 3.25 10/6/uL (4.7-6.1); WHITE BLOOD CELLS 8.9 10/3/uL (4.5-10.5)
[2016-11-16 05:08] LABS: MANUAL DIFF NO %
[2016-11-17 05:31] LABS: CHLORIDE, SERUM 107 MMOL/L (96-112); CO2 (CARBON DIOXIDE) 24 MMOL/L (24-34); CREATININE 1.23 MG/DL (0.70-1.30); GFR AFRICAN AMERICAN 61 ML/MIN (>=60); GFR NON AFRICAN AMERICAN 52 ML/MIN (>=60); GLUCOSE, SERUM 165 MG/DL (60-99); SODIUM, SERUM 142 MMOL/L (135-148)
[2016-11-17 05:34] LABS: BUN (BLOOD UREA NITROGEN) 29 MG/DL (6-23)
[2016-11-17 06:03] LABS: BASOPHILS 0.1 %; BASOPHILS ABSOLUTE 0.01 10/3/uL (0.0-0.16); EOSINOPHILS 0.7 %; EOSINOPHILS ABSOLUTE 0.06 10/3/uL (0.0-0.53); HEMATOCRIT 27.4 % (40.0-51.0); IMMATURE GRANULOCYTES 0.2 %; IMMATURE GRANULOCYTES ABSOLUTE 0.02 10/3/uL (0.0-0.11); LYMPHOCYTES 11.3 %; LYMPHOCYTES ABSOLUTE 1.02 10/3/uL (0.67-4.30); MANUAL DIFF NO %; MEAN CORPUS HGB CONC 32.8 g/dL (32.0-36.0); MEAN CORPUSCULAR HEMOGLOB 29.5 pg (26.0-34.0); MEAN CORPUSCULAR VOLUME 89.8 fL (80-100); MEAN PLATELET VOLUME 9.5 fL (9.2-13.0); MONOCYTES 8.2 %; MONOCYTES ABSOLUTE 0.74 10/3/uL (0.21-1.20); NEUTROPHILS 79.5 %; NEUTROPHILS ABSOLUTE 7.15 10/3/uL (2.02-8.40); PLATELET COUNT 186 10/3/uL (150-400); RBC DISTRIBUTION WIDTH 14.1 % (12.0-16.0); RED CELL COUNT 3.05 10/6/uL (4.7-6.1)
[2016-11-18 05:34] LABS: BASOPHILS 0.1 %; BASOPHILS ABSOLUTE 0.01 10/3/uL (0.0-0.16); EOSINOPHILS 1.8 %; EOSINOPHILS ABSOLUTE 0.14 10/3/uL (0.0-0.53); HEMATOCRIT 26.1 % (40.0-51.0); HEMOGLOBIN 8.5 g/dL (13.6-17.8); IMMATURE GRANULOCYTES 0.3 %; IMMATURE GRANULOCYTES ABSOLUTE 0.02 10/3/uL (0.0-0.11); LYMPHOCYTES 11.8 %; LYMPHOCYTES ABSOLUTE 0.91 10/3/uL (0.67-4.30); MEAN CORPUS HGB CONC 32.6 g/dL (32.0-36.0); MEAN CORPUSCULAR HEMOGLOB 28.9 pg (26.0-34.0); MEAN CORPUSCULAR VOLUME 88.8 fL (80-100); MEAN PLATELET VOLUME 8.9 fL (9.2-13.0); MONOCYTES 7.8 %; NEUTROPHILS 78.2 %; NEUTROPHILS ABSOLUTE 6.02 10/3/uL (2.02-8.40); PLATELET COUNT 185 10/3/uL (150-400); RBC DISTRIBUTION WIDTH 13.9 % (12.0-16.0); RED CELL COUNT 2.94 10/6/uL (4.7-6.1); WHITE BLOOD CELLS 7.7 10/3/uL (4.5-10.5)
[2016-11-18 05:35] LABS: MANUAL DIFF NO %
[2016-11-18 05:38] LABS: CALCIUM, SERUM 8.2 MG/DL (8.5-10.4); CHLORIDE, SERUM 109 MMOL/L (96-112); CO2 (CARBON DIOXIDE) 26 MMOL/L (24-34); CREATININE 1.18 MG/DL (0.70-1.30); GFR AFRICAN AMERICAN 64 ML/MIN (>=60); GFR NON AFRICAN AMERICAN 55 ML/MIN (>=60); POTASSIUM, SERUM 3.9 MMOL/L (3.5-5.3); SODIUM, SERUM 143 MMOL/L (135-148)
[2016-11-18 05:39] LABS: BUN (BLOOD UREA NITROGEN) 22 MG/DL (6-23); GLUCOSE, SERUM 60 MG/DL (60-99)
[2016-11-19 15:25] LABS: BASOPHILS 0.3 %; BASOPHILS ABSOLUTE 0.02 10/3/uL (0.0-0.16); EOSINOPHILS 1.6 %; EOSINOPHILS ABSOLUTE 0.13 10/3/uL (0.0-0.53); HEMATOCRIT 27.3 % (40.0-51.0); IMMATURE GRANULOCYTES 0.4 %; IMMATURE GRANULOCYTES ABSOLUTE 0.03 10/3/uL (0.0-0.11); LYMPHOCYTES 10.1 %; MEAN CORPUSCULAR HEMOGLOB 29.5 pg (26.0-34.0); MEAN CORPUSCULAR VOLUME 89.5 fL (80-100); MEAN PLATELET VOLUME 9.1 fL (9.2-13.0); MONOCYTES 8.4 %; MONOCYTES ABSOLUTE 0.67 10/3/uL (0.21-1.20); NEUTROPHILS 79.2 %; NEUTROPHILS ABSOLUTE 6.28 10/3/uL (2.02-8.40); PLATELET COUNT 229 10/3/uL (150-400); RBC DISTRIBUTION WIDTH 13.8 % (12.0-16.0); RED CELL COUNT 3.05 10/6/uL (4.7-6.1); WHITE BLOOD CELLS 7.9 10/3/uL (4.5-10.5)
[2016-11-19 15:27] LABS: MANUAL DIFF NO %
[2016-11-19 15:38] LABS: BUN (BLOOD UREA NITROGEN) 17 MG/DL (6-23); CALCIUM, SERUM 8.3 MG/DL (8.5-10.4); CHLORIDE, SERUM 104 MMOL/L (96-112); CO2 (CARBON DIOXIDE) 26 MMOL/L (24-34); CREATININE 1.02 MG/DL (0.70-1.30); GFR AFRICAN AMERICAN 76 ML/MIN (>=60); GFR NON AFRICAN AMERICAN 66 ML/MIN (>=60); GLUCOSE, SERUM 75 MG/DL (60-99); POTASSIUM, SERUM 3.9 MMOL/L (3.5-5.3); SODIUM, SERUM 141 MMOL/L (135-148)
[2016-11-19 17:12] LABS: PROCALCITONIN 0.18 ng/mL (<0.5)
[2016-11-20 05:11] LABS: BASOPHILS 0.1 %; BASOPHILS ABSOLUTE 0.01 10/3/uL (0.0-0.16); EOSINOPHILS 2.8 %; EOSINOPHILS ABSOLUTE 0.19 10/3/uL (0.0-0.53); HEMATOCRIT 26.7 % (40.0-51.0); HEMOGLOBIN 8.7 g/dL (13.6-17.8); IMMATURE GRANULOCYTES 0.7 %; IMMATURE GRANULOCYTES ABSOLUTE 0.05 10/3/uL (0.0-0.11); LYMPHOCYTES 11.1 %; LYMPHOCYTES ABSOLUTE 0.74 10/3/uL (0.67-4.30); MEAN CORPUS HGB CONC 32.6 g/dL (32.0-36.0); MONOCYTES 7.6 %; MONOCYTES ABSOLUTE 0.51 10/3/uL (0.21-1.20); NEUTROPHILS 77.7 %; NEUTROPHILS ABSOLUTE 5.17 10/3/uL (2.02-8.40); PLATELET COUNT 222 10/3/uL (150-400); RBC DISTRIBUTION WIDTH 13.7 % (12.0-16.0); WHITE BLOOD CELLS 6.7 10/3/uL (4.5-10.5)
[2016-11-20 05:12] LABS: MANUAL DIFF NO %
[2016-11-20 05:23] LABS: BUN (BLOOD UREA NITROGEN) 20 MG/DL (6-23); CALCIUM, SERUM 8.3 MG/DL (8.5-10.4); CHLORIDE, SERUM 108 MMOL/L (96-112); CO2 (CARBON DIOXIDE) 26 MMOL/L (24-34); CREATININE 1.05 MG/DL (0.70-1.30); GFR AFRICAN AMERICAN 74 ML/MIN (>=60); GFR NON AFRICAN AMERICAN 64 ML/MIN (>=60); POTASSIUM, SERUM 3.7 MMOL/L (3.5-5.3); SODIUM, SERUM 144 MMOL/L (135-148)
[2016-11-20 05:24] LABS: GLUCOSE, SERUM 95 MG/DL (60-99)
[2016-11-21 06:33] LABS: BASOPHILS 0.3 %; BASOPHILS ABSOLUTE 0.02 10/3/uL (0.0-0.16); EOSINOPHILS 2.7 %; HEMATOCRIT 25.4 % (40.0-51.0); HEMOGLOBIN 8.3 g/dL (13.6-17.8); IMMATURE GRANULOCYTES 0.7 %; IMMATURE GRANULOCYTES ABSOLUTE 0.05 10/3/uL (0.0-0.11); MANUAL DIFF NO %; MEAN CORPUS HGB CONC 32.7 g/dL (32.0-36.0); MEAN CORPUSCULAR HEMOGLOB 29.5 pg (26.0-34.0); MEAN CORPUSCULAR VOLUME 90.4 fL (80-100); MEAN PLATELET VOLUME 9.1 fL (9.2-13.0); MONOCYTES 7.9 %; MONOCYTES ABSOLUTE 0.59 10/3/uL (0.21-1.20); NEUTROPHILS 76.4 %; NEUTROPHILS ABSOLUTE 5.74 10/3/uL (2.02-8.40); PLATELET COUNT 240 10/3/uL (150-400); RBC DISTRIBUTION WIDTH 13.8 % (12.0-16.0); RED CELL COUNT 2.81 10/6/uL (4.7-6.1); WHITE BLOOD CELLS 7.5 10/3/uL (4.5-10.5)
[2016-11-21 06:51] LABS: CALCIUM, SERUM 8.3 MG/DL (8.5-10.4); CHLORIDE, SERUM 111 MMOL/L (96-112); CO2 (CARBON DIOXIDE) 26 MMOL/L (24-34); CREATININE 1.34 MG/DL (0.70-1.30); GFR AFRICAN AMERICAN 55 ML/MIN (>=60); GFR NON AFRICAN AMERICAN 47 ML/MIN (>=60); SGOT(AST) 50 U/L (5-40); SGPT(ALT) 52 U/L (5-65); SODIUM, SERUM 146 MMOL/L (135-148); TOTAL BILIRUBIN 0.5 MG/DL (0-1.2); TOTAL PROTEIN 6.1 G/DL (6.0-8.5)
[2016-11-21 06:57] LABS: A/G RATIO 0.5 (0.7-1.9); ALBUMIN 1.9 G/DL (3.5-5.0); ALKALINE PHOSPHATASE 96 U/L (45-117); BUN (BLOOD UREA NITROGEN) 24 MG/DL (6-23); GLOBULIN 4.2 G/DL (2.5-4.1); GLUCOSE, SERUM 178 MG/DL (60-99); POTASSIUM, SERUM 4.7 MMOL/L (3.5-5.3)
[2016-11-21 18:41] LABS: FOLATE 13.6 NG/ML (>5.2)
[2016-11-21 19:08] LABS: B NATRIURETIC PEPTIDE (BNP) 56.2 PG/ML (< 100.0)
[2016-11-23 05:55] LABS: HEMATOCRIT 27.3 % (40.0-51.0); HEMOGLOBIN 8.7 g/dL (13.6-17.8); MEAN CORPUS HGB CONC 31.9 g/dL (32.0-36.0); MEAN CORPUSCULAR HEMOGLOB 28.4 pg (26.0-34.0); MEAN CORPUSCULAR VOLUME 89.2 fL (80-100); MEAN PLATELET VOLUME 8.9 fL (9.2-13.0); PLATELET COUNT 287 10/3/uL (150-400); RED CELL COUNT 3.06 10/6/uL (4.7-6.1); WHITE BLOOD CELLS 8.5 10/3/uL (4.5-10.5)
[2016-11-23 05:56] LABS: MANUAL DIFF YES %
[2016-11-23 06:06] LABS: CALCIUM, SERUM 8.3 MG/DL (8.5-10.4); CHLORIDE, SERUM 106 MMOL/L (96-112); CO2 (CARBON DIOXIDE) 25 MMOL/L (24-34); CREATININE 1.19 MG/DL (0.70-1.30); GFR AFRICAN AMERICAN 63 ML/MIN (>=60); GFR NON AFRICAN AMERICAN 55 ML/MIN (>=60); PHOSPHORUS, SERUM 3.1 MG/DL (2.5-4.5); POTASSIUM, SERUM 3.9 MMOL/L (3.5-5.3); SODIUM, SERUM 142 MMOL/L (135-148)
[2016-11-23 06:08] LABS: ALBUMIN 2.3 G/DL (3.5-5.0); BUN (BLOOD UREA NITROGEN) 14 MG/DL (6-23); GLUCOSE, SERUM 36 MG/DL (60-99)
[2016-11-23 06:47] LABS: BAND NEUTROPHILS 1 %; BASOPHILS 1 %; BASOPHILS ABSOLUTE (CALC) 0.09 10/3/uL (0.0-0.16); EOSINOPHILS 4 %; EOSINOPHILS ABSOLUTE (CALC) 0.34 10/3/uL (0.0-0.53); IMMATURE GRANS ABSOLUTE (CALC) 0.17 10/3/uL (0.0-0.11); LYMPHOCYTES 15 %; LYMPHOCYTES ABSOLUTE (CALC) 1.28 10/3/uL (0.67-4.30); METAMYELOCYTES 2 %; MONOCYTES 7 %; NEUTROPHILS ABSOLUTE (CALC) 6.04 10/3/uL (2.02-8.40); PLATELET ESTIMATE ADQ (ADEQUATE); RBC MORPHOLOGY NORM (NORMAL); SEGMENTED NEUTROPHIL (0) 70 %; TOTAL NUCLEATED CELLS 100
[2016-11-23 10:05] LABS: INTERNATIONAL NORMAL RATI 1.3 UNITS (-); PROTIME (NOT ORD) 16.3 SEC (12.0-14.5)
[2016-11-23 10:06] LABS: PARTIAL THROMBO TIME 71.9 SEC (22.5-37.2)
[2016-11-23 15:53] LABS: GLUCOSE BODY FL (NOT ORD) 114 MG/DL; LDH BODY FLUID (NOT ORD) 174 U/L
[2016-11-23 16:24] LABS: BD FL LYMPH (NOT ORD) 10 %; BD FL SOURCE (NOT ORD) PLEURAL; BF BASO (NOT OF) 0 %; BF LARGE MONONUCLEAR 65 %; BODY FLUID EOS (NOT ORD) 0 %; BODY FLUID SEG (NOT ORD) 25 %
[2016-11-23 17:47] LABS: BODY FLUID RBC (NOT ORD) 4090 /MM3
[2016-11-23 17:48] LABS: BF TOTAL CELL CT (NOT ORD 3943 /MM3
[2016-11-23 19:28] LABS: BD FL SOURCE (NOT ORD) PLEURAL
[2016-11-24 06:41] LABS: BUN (BLOOD UREA NITROGEN) 14 MG/DL (6-23); CALCIUM, SERUM 8.8 MG/DL (8.5-10.4); CHLORIDE, SERUM 108 MMOL/L (96-112); CO2 (CARBON DIOXIDE) 26 MMOL/L (24-34); CREATININE 1.11 MG/DL (0.70-1.30); GFR AFRICAN AMERICAN 69 ML/MIN (>=60); GFR NON AFRICAN AMERICAN 59 ML/MIN (>=60); GLUCOSE, SERUM 50 MG/DL (60-99); POTASSIUM, SERUM 3.9 MMOL/L (3.5-5.3); SODIUM, SERUM 142 MMOL/L (135-148)
[2016-11-24 12:26] LABS: TOTAL PROTEIN 6.7 G/DL (6.0-8.5)
[2016-11-26 15:05] LABS: QUANTIFERON NIL 0.05 IU/mL (()); QUANTIFERON TB GOLD Negative (NEG); TUBERCULOSIS AG VAL (Ag-Nil) 0.14 IU/mL (<0.35)
[2016-11-27 09:15] LABS: PROCALCITONIN 3.65 ng/mL (<0.5)
[2016-11-27 11:29] LABS: BASOPHILS 0.1 %; BASOPHILS ABSOLUTE 0.02 10/3/uL (0.0-0.16); EOSINOPHILS 0.6 %; EOSINOPHILS ABSOLUTE 0.08 10/3/uL (0.0-0.53); HEMATOCRIT 25.9 % (40.0-51.0); HEMOGLOBIN 8.6 g/dL (13.6-17.8); IMMATURE GRANULOCYTES 0.4 %; IMMATURE GRANULOCYTES ABSOLUTE 0.06 10/3/uL (0.0-0.11); LYMPHOCYTES 7.8 %; LYMPHOCYTES ABSOLUTE 1.09 10/3/uL (0.67-4.30); MEAN CORPUS HGB CONC 33.2 g/dL (32.0-36.0); MEAN CORPUSCULAR HEMOGLOB 29.5 pg (26.0-34.0); MEAN CORPUSCULAR VOLUME 88.7 fL (80-100); MONOCYTES 6.6 %; MONOCYTES ABSOLUTE 0.93 10/3/uL (0.21-1.20); NEUTROPHILS 84.5 %; NEUTROPHILS ABSOLUTE 11.82 10/3/uL (2.02-8.40); PLATELET COUNT 235 10/3/uL (150-400); RBC DISTRIBUTION WIDTH 14.7 % (12.0-16.0); RED CELL COUNT 2.92 10/6/uL (4.7-6.1)
[2016-11-27 11:30] LABS: MANUAL DIFF NO %
[2016-11-27 11:40] LABS: A/G RATIO 0.6 (0.7-1.9); ALBUMIN 2.4 G/DL (3.5-5.0); ALKALINE PHOSPHATASE 70 U/L (45-117); BUN (BLOOD UREA NITROGEN) 26 MG/DL (6-23); CALCIUM, SERUM 8.5 MG/DL (8.5-10.4); CHLORIDE, SERUM 100 MMOL/L (96-112); CO2 (CARBON DIOXIDE) 28 MMOL/L (24-34); CREATININE 1.48 MG/DL (0.70-1.30); GFR AFRICAN AMERICAN 49 ML/MIN (>=60); GFR NON AFRICAN AMERICAN 42 ML/MIN (>=60); GLOBULIN 3.9 G/DL (2.5-4.1); GLUCOSE, SERUM 187 MG/DL (60-99); POTASSIUM, SERUM 4.5 MMOL/L (3.5-5.3); SGOT(AST) 34 U/L (5-40); SGPT(ALT) 40 U/L (5-65); SODIUM, SERUM 138 MMOL/L (135-148); TOTAL BILIRUBIN 0.6 MG/DL (0-1.2); TOTAL PROTEIN 6.3 G/DL (6.0-8.5)
[2016-11-27 14:31] LABS: ASCORBIC ACID (UR NOT ORDER) NEG (NEG); BILIRUBIN, URINE NEGATIVE (NEG); KETONE, URINE NEGATIVE (NEG); LEUKOCYTE ESTERASE(NOT OR NEG (NEG); WBC (NOT ORDERED) (RFLEX) 3 (0-5)
[2016-11-28 07:16] LABS: BASOPHILS 0.1 %; BASOPHILS ABSOLUTE 0.01 10/3/uL (0.0-0.16); EOSINOPHILS 1.1 %; EOSINOPHILS ABSOLUTE 0.11 10/3/uL (0.0-0.53); HEMATOCRIT 24.3 % (40.0-51.0); HEMOGLOBIN 7.7 g/dL (13.6-17.8); IMMATURE GRANULOCYTES 0.4 %; IMMATURE GRANULOCYTES ABSOLUTE 0.04 10/3/uL (0.0-0.11); LYMPHOCYTES 4.6 %; LYMPHOCYTES ABSOLUTE 0.46 10/3/uL (0.67-4.30); MANUAL DIFF NO %; MEAN CORPUS HGB CONC 31.7 g/dL (32.0-36.0); MEAN CORPUSCULAR HEMOGLOB 28.8 pg (26.0-34.0); MEAN PLATELET VOLUME 8.8 fL (9.2-13.0); MONOCYTES 7.5 %; MONOCYTES ABSOLUTE 0.74 10/3/uL (0.21-1.20); NEUTROPHILS 86.3 %; NEUTROPHILS ABSOLUTE 8.57 10/3/uL (2.02-8.40); PLATELET COUNT 204 10/3/uL (150-400); RBC DISTRIBUTION WIDTH 14.7 % (12.0-16.0); RED CELL COUNT 2.67 10/6/uL (4.7-6.1); WHITE BLOOD CELLS 9.9 10/3/uL (4.5-10.5)
[2016-11-28 07:31] LABS: BUN (BLOOD UREA NITROGEN) 26 MG/DL (6-23); CALCIUM, SERUM 8.3 MG/DL (8.5-10.4); CHLORIDE, SERUM 103 MMOL/L (96-112); CO2 (CARBON DIOXIDE) 29 MMOL/L (24-34); CREATININE 1.37 MG/DL (0.70-1.30); GFR AFRICAN AMERICAN 53 ML/MIN (>=60); GFR NON AFRICAN AMERICAN 46 ML/MIN (>=60); GLUCOSE, SERUM 86 MG/DL (60-99); POTASSIUM, SERUM 4.2 MMOL/L (3.5-5.3); SODIUM, SERUM 141 MMOL/L (135-148)
[2016-11-28 08:13] LABS: PROCALCITONIN 2.34 ng/mL (<0.5)
[2016-11-28 13:30] LABS: RETICULOCYTE COUNT 5.3 % (0.5-2.9); RETICULOCYTE COUNT ABSOLUTE 146.3 10/3/uL (20.2-119.8)
[2016-11-28 13:39] LABS: IRON BINDING CAPACITY 268 MCG/DL (250-450); IRON, SERUM 17 MCG/DL (35-150)
[2016-11-29 05:29] LABS: BASOPHILS 0.1 %; BASOPHILS ABSOLUTE 0.01 10/3/uL (0.0-0.16); EOSINOPHILS 2.5 %; HEMATOCRIT 25.3 % (40.0-51.0); HEMOGLOBIN 8.1 g/dL (13.6-17.8); IMMATURE GRANULOCYTES 0.4 %; IMMATURE GRANULOCYTES ABSOLUTE 0.03 10/3/uL (0.0-0.11); LYMPHOCYTES 10.5 %; LYMPHOCYTES ABSOLUTE 0.84 10/3/uL (0.67-4.30); MEAN CORPUSCULAR VOLUME 90.7 fL (80-100); MEAN PLATELET VOLUME 8.4 fL (9.2-13.0); MONOCYTES 7.8 %; MONOCYTES ABSOLUTE 0.63 10/3/uL (0.21-1.20); NEUTROPHILS 78.7 %; NEUTROPHILS ABSOLUTE 6.32 10/3/uL (2.02-8.40); PLATELET COUNT 189 10/3/uL (150-400); RBC DISTRIBUTION WIDTH 14.4 % (12.0-16.0); RED CELL COUNT 2.79 10/6/uL (4.7-6.1)
[2016-11-29 05:33] LABS: MANUAL DIFF NO %
[2016-11-29 05:43] LABS: BUN (BLOOD UREA NITROGEN) 19 MG/DL (6-23); CALCIUM, SERUM 8.2 MG/DL (8.5-10.4); CHLORIDE, SERUM 106 MMOL/L (96-112); CO2 (CARBON DIOXIDE) 25 MMOL/L (24-34); GFR AFRICAN AMERICAN 57 ML/MIN (>=60); GFR NON AFRICAN AMERICAN 49 ML/MIN (>=60); GLUCOSE, SERUM 55 MG/DL (60-99); POTASSIUM, SERUM 3.8 MMOL/L (3.5-5.3); SODIUM, SERUM 142 MMOL/L (135-148)
[2016-11-29 18:28] LABS: FERRITIN 203 NG/ML (26-388)
[2016-11-30 07:17] LABS: BUN (BLOOD UREA NITROGEN) 16 MG/DL (6-23); CALCIUM, SERUM 8.2 MG/DL (8.5-10.4); CHLORIDE, SERUM 109 MMOL/L (96-112); CO2 (CARBON DIOXIDE) 23 MMOL/L (24-34); GFR AFRICAN AMERICAN 63 ML/MIN (>=60); GFR NON AFRICAN AMERICAN 54 ML/MIN (>=60); POTASSIUM, SERUM 3.6 MMOL/L (3.5-5.3); SODIUM, SERUM 144 MMOL/L (135-148)
[2016-11-30 07:18] LABS: GLUCOSE, SERUM 43 MG/DL (60-99)
[2016-11-30 07:23] LABS: BASOPHILS 0.5 %; BASOPHILS ABSOLUTE 0.04 10/3/uL (0.0-0.16); EOSINOPHILS 2.2 %; EOSINOPHILS ABSOLUTE 0.17 10/3/uL (0.0-0.53); HEMOGLOBIN 8.3 g/dL (13.6-17.8); IMMATURE GRANULOCYTES 0.4 %; IMMATURE GRANULOCYTES ABSOLUTE 0.03 10/3/uL (0.0-0.11); LYMPHOCYTES 10.1 %; LYMPHOCYTES ABSOLUTE 0.77 10/3/uL (0.67-4.30); MEAN CORPUS HGB CONC 30.7 g/dL (32.0-36.0); MEAN CORPUSCULAR HEMOGLOB 28.5 pg (26.0-34.0); MEAN CORPUSCULAR VOLUME 92.8 fL (80-100); MEAN PLATELET VOLUME 9.2 fL (9.2-13.0); MONOCYTES 10.4 %; MONOCYTES ABSOLUTE 0.79 10/3/uL (0.21-1.20); NEUTROPHILS 76.4 %; PLATELET COUNT 200 10/3/uL (150-400); RED CELL COUNT 2.91 10/6/uL (4.7-6.1); WHITE BLOOD CELLS 7.6 10/3/uL (4.5-10.5)
[2016-11-30 07:24] LABS: MANUAL DIFF NO %
[2016-11-30 08:15] LABS: PROCALCITONIN 0.66 ng/mL (<0.5)
[2016-12-01 06:12] LABS: BASOPHILS 0.5 %; BASOPHILS ABSOLUTE 0.03 10/3/uL (0.0-0.16); EOSINOPHILS 2.9 %; EOSINOPHILS ABSOLUTE 0.18 10/3/uL (0.0-0.53); HEMATOCRIT 25.5 % (40.0-51.0); HEMOGLOBIN 8.1 g/dL (13.6-17.8); IMMATURE GRANULOCYTES 0.5 %; IMMATURE GRANULOCYTES ABSOLUTE 0.03 10/3/uL (0.0-0.11); LYMPHOCYTES 11.6 %; LYMPHOCYTES ABSOLUTE 0.71 10/3/uL (0.67-4.30); MEAN CORPUS HGB CONC 31.8 g/dL (32.0-36.0); MEAN CORPUSCULAR HEMOGLOB 28.6 pg (26.0-34.0); MEAN CORPUSCULAR VOLUME 90.1 fL (80-100); MEAN PLATELET VOLUME 9.2 fL (9.2-13.0); MONOCYTES ABSOLUTE 0.49 10/3/uL (0.21-1.20); NEUTROPHILS 76.5 %; NEUTROPHILS ABSOLUTE 4.68 10/3/uL (2.02-8.40); PLATELET COUNT 193 10/3/uL (150-400); RBC DISTRIBUTION WIDTH 14.7 % (12.0-16.0); RED CELL COUNT 2.83 10/6/uL (4.7-6.1); WHITE BLOOD CELLS 6.1 10/3/uL (4.5-10.5)
[2016-12-01 06:14] LABS: MANUAL DIFF NO %
[2016-12-01 06:29] LABS: BUN (BLOOD UREA NITROGEN) 14 MG/DL (6-23); CHLORIDE, SERUM 110 MMOL/L (96-112); CO2 (CARBON DIOXIDE) 25 MMOL/L (24-34); CREATININE 1.11 MG/DL (0.70-1.30); GFR AFRICAN AMERICAN 69 ML/MIN (>=60); GFR NON AFRICAN AMERICAN 59 ML/MIN (>=60); GLUCOSE, SERUM 105 MG/DL (60-99); POTASSIUM, SERUM 3.7 MMOL/L (3.5-5.3); SODIUM, SERUM 144 MMOL/L (135-148)
[2016-12-02 07:29] LABS: BASOPHILS 0.7 %; BASOPHILS ABSOLUTE 0.04 10/3/uL (0.0-0.16); EOSINOPHILS 2.6 %; EOSINOPHILS ABSOLUTE 0.15 10/3/uL (0.0-0.53); HEMATOCRIT 24.2 % (40.0-51.0); HEMOGLOBIN 7.4 g/dL (13.6-17.8); IMMATURE GRANULOCYTES 0.7 %; IMMATURE GRANULOCYTES ABSOLUTE 0.04 10/3/uL (0.0-0.11); LYMPHOCYTES 13.9 %; LYMPHOCYTES ABSOLUTE 0.79 10/3/uL (0.67-4.30); MEAN CORPUS HGB CONC 30.6 g/dL (32.0-36.0); MEAN CORPUSCULAR HEMOGLOB 28.1 pg (26.0-34.0); MONOCYTES 10.2 %; MONOCYTES ABSOLUTE 0.58 10/3/uL (0.21-1.20); NEUTROPHILS 71.9 %; NEUTROPHILS ABSOLUTE 4.09 10/3/uL (2.02-8.40); PLATELET COUNT 171 10/3/uL (150-400); RBC DISTRIBUTION WIDTH 14.8 % (12.0-16.0); RED CELL COUNT 2.63 10/6/uL (4.7-6.1); WHITE BLOOD CELLS 5.7 10/3/uL (4.5-10.5)
[2016-12-02 07:34] LABS: MANUAL DIFF NO %
[2016-12-02 07:53] LABS: BUN (BLOOD UREA NITROGEN) 16 MG/DL (6-23); C-REACTIVE PROTEIN 74.6 MG/L (<8.0); CALCIUM, SERUM 8.3 MG/DL (8.5-10.4); CHLORIDE, SERUM 111 MMOL/L (96-112); CO2 (CARBON DIOXIDE) 27 MMOL/L (24-34); CREATININE 1.34 MG/DL (0.70-1.30); GFR AFRICAN AMERICAN 55 ML/MIN (>=60); GFR NON AFRICAN AMERICAN 47 ML/MIN (>=60); PHOSPHORUS, SERUM 3.2 MG/DL (2.5-4.5); POTASSIUM, SERUM 4.1 MMOL/L (3.5-5.3); SODIUM, SERUM 145 MMOL/L (135-148)
[2016-12-02 07:56] LABS: GLUCOSE, SERUM 183 MG/DL (60-99)
[2016-12-02 09:06] LABS: PROCALCITONIN 0.23 ng/mL (<0.5)
[2016-12-03 08:41] LABS: BASOPHILS 0.2 %; BASOPHILS ABSOLUTE 0.01 10/3/uL (0.0-0.16); EOSINOPHILS 3.1 %; EOSINOPHILS ABSOLUTE 0.18 10/3/uL (0.0-0.53); HEMATOCRIT 24.6 % (40.0-51.0); HEMOGLOBIN 7.8 g/dL (13.6-17.8); IMMATURE GRANULOCYTES 1.2 %; IMMATURE GRANULOCYTES ABSOLUTE 0.07 10/3/uL (0.0-0.11); LYMPHOCYTES 14.2 %; LYMPHOCYTES ABSOLUTE 0.83 10/3/uL (0.67-4.30); MEAN CORPUS HGB CONC 31.7 g/dL (32.0-36.0); MEAN CORPUSCULAR HEMOGLOB 28.9 pg (26.0-34.0); MEAN CORPUSCULAR VOLUME 91.1 fL (80-100); MEAN PLATELET VOLUME 9.1 fL (9.2-13.0); MONOCYTES 8.9 %; MONOCYTES ABSOLUTE 0.52 10/3/uL (0.21-1.20); NEUTROPHILS 72.4 %; NEUTROPHILS ABSOLUTE 4.22 10/3/uL (2.02-8.40); PLATELET COUNT 162 10/3/uL (150-400); RBC DISTRIBUTION WIDTH 14.6 % (12.0-16.0); WHITE BLOOD CELLS 5.8 10/3/uL (4.5-10.5)
[2016-12-03 08:53] LABS: BUN (BLOOD UREA NITROGEN) 16 MG/DL (6-23); CALCIUM, SERUM 8.3 MG/DL (8.5-10.4); CHLORIDE, SERUM 108 MMOL/L (96-112); CO2 (CARBON DIOXIDE) 27 MMOL/L (24-34); CREATININE 1.15 MG/DL (0.70-1.30); GFR AFRICAN AMERICAN 66 ML/MIN (>=60); GFR NON AFRICAN AMERICAN 57 ML/MIN (>=60); GLUCOSE, SERUM 189 MG/DL (60-99); POTASSIUM, SERUM 3.8 MMOL/L (3.5-5.3); SODIUM, SERUM 142 MMOL/L (135-148)
[2016-12-04 06:40] LABS: BASOPHILS 0.3 %; BASOPHILS ABSOLUTE 0.02 10/3/uL (0.0-0.16); EOSINOPHILS ABSOLUTE 0.18 10/3/uL (0.0-0.53); HEMATOCRIT 23.7 % (40.0-51.0); HEMOGLOBIN 7.6 g/dL (13.6-17.8); IMMATURE GRANULOCYTES 1.4 %; IMMATURE GRANULOCYTES ABSOLUTE 0.08 10/3/uL (0.0-0.11); LYMPHOCYTES 16.2 %; LYMPHOCYTES ABSOLUTE 0.96 10/3/uL (0.67-4.30); MANUAL DIFF NO %; MEAN CORPUS HGB CONC 32.1 g/dL (32.0-36.0); MEAN CORPUSCULAR HEMOGLOB 28.9 pg (26.0-34.0); MEAN CORPUSCULAR VOLUME 90.1 fL (80-100); MEAN PLATELET VOLUME 9.1 fL (9.2-13.0); MONOCYTES 8.5 %; NEUTROPHILS 70.6 %; NEUTROPHILS ABSOLUTE 4.17 10/3/uL (2.02-8.40); PLATELET COUNT 164 10/3/uL (150-400); RBC DISTRIBUTION WIDTH 14.7 % (12.0-16.0); RED CELL COUNT 2.63 10/6/uL (4.7-6.1); WHITE BLOOD CELLS 5.9 10/3/uL (4.5-10.5)
[2016-12-04 06:54] LABS: BUN (BLOOD UREA NITROGEN) 18 MG/DL (6-23); CALCIUM, SERUM 8.3 MG/DL (8.5-10.4); CHLORIDE, SERUM 107 MMOL/L (96-112); CO2 (CARBON DIOXIDE) 25 MMOL/L (24-34); CREATININE 1.19 MG/DL (0.70-1.30); GFR AFRICAN AMERICAN 63 ML/MIN (>=60); GFR NON AFRICAN AMERICAN 55 ML/MIN (>=60); POTASSIUM, SERUM 3.7 MMOL/L (3.5-5.3); SODIUM, SERUM 142 MMOL/L (135-148)
[2016-12-04 06:55] LABS: GLUCOSE, SERUM 121 MG/DL (60-99)
[2016-12-05 06:29] LABS: BASOPHILS 0.2 %; BASOPHILS ABSOLUTE 0.01 10/3/uL (0.0-0.16); EOSINOPHILS 3.4 %; EOSINOPHILS ABSOLUTE 0.19 10/3/uL (0.0-0.53); HEMOGLOBIN 7.7 g/dL (13.6-17.8); IMMATURE GRANULOCYTES 2.3 %; IMMATURE GRANULOCYTES ABSOLUTE 0.13 10/3/uL (0.0-0.11); LYMPHOCYTES 15.8 %; LYMPHOCYTES ABSOLUTE 0.88 10/3/uL (0.67-4.30); MANUAL DIFF NO %; MEAN CORPUS HGB CONC 32.1 g/dL (32.0-36.0); MEAN CORPUSCULAR HEMOGLOB 28.2 pg (26.0-34.0); MEAN CORPUSCULAR VOLUME 87.9 fL (80-100); MEAN PLATELET VOLUME 8.8 fL (9.2-13.0); MONOCYTES 9.2 %; MONOCYTES ABSOLUTE 0.51 10/3/uL (0.21-1.20); NEUTROPHILS 69.1 %; NEUTROPHILS ABSOLUTE 3.85 10/3/uL (2.02-8.40); PLATELET COUNT 163 10/3/uL (150-400); RBC DISTRIBUTION WIDTH 14.9 % (12.0-16.0); RED CELL COUNT 2.73 10/6/uL (4.7-6.1); WHITE BLOOD CELLS 5.6 10/3/uL (4.5-10.5)
[2016-12-05 06:39] LABS: BUN (BLOOD UREA NITROGEN) 14 MG/DL (6-23); CALCIUM, SERUM 8.2 MG/DL (8.5-10.4); CHLORIDE, SERUM 105 MMOL/L (96-112); CO2 (CARBON DIOXIDE) 25 MMOL/L (24-34); CREATININE 1.04 MG/DL (0.70-1.30); GFR AFRICAN AMERICAN 74 ML/MIN (>=60); GFR NON AFRICAN AMERICAN 64 ML/MIN (>=60); GLUCOSE, SERUM 188 MG/DL (60-99); PHOSPHORUS, SERUM 3.1 MG/DL (2.5-4.5); POTASSIUM, SERUM 3.7 MMOL/L (3.5-5.3); SODIUM, SERUM 139 MMOL/L (135-148)
[2016-12-05 07:05] LABS: PROCALCITONIN 0.11 ng/mL (<0.5)
[2017-04-06] MEDS ORDERED: PREV15 PO (21:01)
[2017-04-06] MEDS ORDERED: CRESTOR20 MG PO (21:01)
[2017-04-06] MEDS ORDERED: LANTUS SC (21:02)
[2017-04-06] MEDS ORDERED: HUMALOG SC (21:02)
[2017-04-06] MEDS ORDERED: CENTRUM PO (21:02)
[2017-04-06] MEDS ORDERED: ALTA2.5 PO (21:02)
[2017-04-06] MEDS ORDERED: NAMENDA10 MG PO (21:02)
[2017-04-06] MEDS ORDERED: CYMBALTA60 PO (21:02)
[2017-04-06] MEDS ORDERED: SIN25 PO (21:03)
[2017-04-06] MEDS ORDERED: L20 PO ×2 (21:03→21:04)
[2017-04-06] MEDS ORDERED: CARTIA XT240 MG/24 PO (21:03)
[2017-04-06] MEDS ORDERED: DUONEB INH (21:03)
[2017-04-06] MEDS ORDERED: KDUR10 PO ×2 (21:04→21:05)
[2017-04-06] MEDS ORDERED: CEFT5 PO (21:05)
[2017-04-06] MEDS ORDERED: VITAMIN D400 UNI1 PO (21:05)
[2017-04-06] MEDS ORDERED: ASAB PO (21:05)
[2017-04-20] MEDS ORDERED: SIN25 PO (00:02)
[2017-04-20] MEDS ORDERED: DUONEB INH (00:02)
[2017-04-20] MEDS ORDERED: ASAB PO (00:02)
[2017-04-20] MEDS ORDERED: LANTUS SC (00:03)
[2017-04-20] MEDS ORDERED: CYMBALTA60 PO (00:03)
[2017-04-20] MEDS ORDERED: HUMALOG SC (00:03)
[2017-04-20] MEDS ORDERED: CARTIA XT240 MG/24 PO (00:03)
[2017-04-20] MEDS ORDERED: MONODOX100 MG PO (00:04)
[2017-04-20] MEDS ORDERED: MAXIMUM D3 PO (00:05)
[2017-04-20] MEDS ORDERED: KLOR-CON 1010 MEQ PO (00:05)
[2017-04-20] MEDS ORDERED: SYN.05 PO (00:05)
[2017-04-20] MEDS ORDERED: FERROUS SULF325 M1 PO (00:05)
[2017-04-20] MEDS ORDERED: MULTIVIT/MIN PO (00:05)
[2017-04-20] MEDS ORDERED: CRESTOR20 MG PO (00:05)
[2017-04-20] MEDS ORDERED: NAMENDA10 MG PO (00:06)
[2017-04-20] MEDS ORDERED: L20 PO (00:06)
[2017-04-20] MEDS ORDERED: PREV15 PO (00:06)
== END 2016-12-06 15:55 | DRG 177 ==
LOC: ER 23:39 → 6NO 11-11 02:23
PROVIDERS: Hospitalist; Internal Medicine; Internal Medicine Critical Care Medicine; Nurse Practitioner; Nurse Practitioner Family; Physician Assistant Medical
PROC: 0W9B3ZX Drainage of Left Pleural Cavity, Percutaneous Approach, Diagnostic (ICD-10-PCS; 2016-11-23)
PROC: 30233N1 Transfusion of Nonautologous Red Blood Cells into Peripheral Vein, Percutaneous Approach (ICD-10-PCS; principal; 2016-12-05)
DX: J69.0 Pneumonitis due to inhalation of food and vomit (principal); G93.41 Metabolic encephalopathy; J96.21 Acute and chronic respiratory failure with hypoxia; N17.9 Acute kidney failure, unspecified; J91.8 Pleural effusion in other conditions classified elsewhere; F02.81 Dementia in other diseases classified elsewhere, unspecified severity, with behavioral disturbance; J44.1 Chronic obstructive pulmonary disease with (acute) exacerbation; N39.0 Urinary tract infection, site not specified; D62 Acute posthemorrhagic anemia; R13.12 Dysphagia, oropharyngeal phase; G30.9 Alzheimer's disease, unspecified; E11.65 Type 2 diabetes mellitus with hyperglycemia; E11.649 Type 2 diabetes mellitus with hypoglycemia without coma; F41.9 Anxiety disorder, unspecified; B19.20 Unspecified viral hepatitis C without hepatic coma; B96.4 Proteus (mirabilis) (morganii) as the cause of diseases classified elsewhere; Z16.12 Extended spectrum beta lactamase (ESBL) resistance; B95.2 Enterococcus as the cause of diseases classified elsewhere; D69.6 Thrombocytopenia, unspecified; D63.8 Anemia in other chronic diseases classified elsewhere; I25.10 Atherosclerotic heart disease of native coronary artery without angina pectoris; I48.0 Paroxysmal atrial fibrillation; I73.9 Peripheral vascular disease, unspecified; M81.0 Age-related osteoporosis without current pathological fracture; R19.5 Other fecal abnormalities; F32.9 Major depressive disorder, single episode, unspecified; H91.90 Unspecified hearing loss, unspecified ear; Z95.1 Presence of aortocoronary bypass graft; Z86.19 Personal history of other infectious and parasitic diseases; Z99.81 Dependence on supplemental oxygen; Z79.4 Long term (current) use of insulin; Z87.440 Personal history of urinary (tract) infections; Z96.653 Presence of artificial knee joint, bilateral; Z83.3 Family history of diabetes mellitus
CPT/HCPCS: 32555; 36415; 36600; 71010; 71020; 71250; 74176; 74230; 80048; 80053; 80069; 80202; 81001; 82140; 82150; 82272; 82550; 82553; 82607; 82728; 82746; 82805; 82945; 82962; 83540; 83550; 83605; 83615; 83690; 83735; 83880; 84100; 84145; 84155; 84157; 84443; 84484; 85025; 85045; 85610; 85730; 86140; 86480; 86803; 86850; 86900; 86901; 86920; 87015; 87040; 87070; 87077; 87086; 87102; 87116; 87186; 87205; 87449; 88112; 88305; 89051; 92526-GN; 92610-GN; 92611-GN; 93005; 94640; 97110-GP; 97116-GP; 97161-GP; 97164-GP; 97530-GP; 99285; A9270-GY; C9113; G8978-CK-GP; G8978-CL-GP; G8979-CJ-GP; G8979-CK-GP; G8996-CK-GN; G8997-CK-GN; G8998-CK-GN; J0456; J2543; J3370; P9016

== ENCOUNTER 2017-01-07 21:57 | Inpatient (IN) | payer MEDICARE, OTHER ==
--- NOTE | ~2017-01-07 | DS ---
Discharge Summary [facility] [address] [place]. [address] NAME: HAVEN HUBER : [birth year] STATUS : [facility]#: [id number] AGE: 86 ADM/REG DATE : 01/07/17 MR#: [id number] REPORT SERV DATE: 01/14/17 DICTATED BY: PERI MILLER DATE: 01/13/17 REPORT STATUS : Draft TRANSCRIBED BY: MODL DATE: 01/13/17 ADMISSION DATE: 01/07/2017 DISCHARGE DATE: INTERIM DISCHARGE DIAGNOSES: Include: 1. Recurrent aspiration pneumonia with severe oropharyngeal dysphagia. The patient had a speech and swallow evaluation and treatment during this hospitalization with a modified diet. 2. Chronic hypoxic respiratory failure. 3. 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 4. Bilateral pulmonary nodules progressively getting bigger. They have been followed for years as an outpatient setting by Dr. Solomon Fleming. 5. Chronic increasing left-sided loculated pleural effusion. 6. Paroxysmal atrial fibrillation, not a candidate of anticoagulation due to history of gastrointestinal bleed. 7. Anemia of chronic disease. 8. Depression. 9. Debility and weakness. 10.Mild cognitive impairment. 11.Hearing loss. 12.Coronary artery disease, status post coronary artery bypass graft. 13.Degenerative joint disease, osteoarthritis. CONSULTANTS ON THE CASE: Pulmonary, Dr. Roberto and Dr. Valentín Lua Pulmonary and CT Surgery currently is pending. PROCEDURES DONE DURING THIS HOSPITALIZATION: None TESTS DONE DURING THIS HOSPITALIZATION: Include a CT scan of the chest without contrast showing that the patient does have a lingular nodule remaining similar to mildly increased since prior exam in 11/19/2016 and a stable nodule in the posterior lateral right upper lobe measuring 2.2/1.6 cm and a consolidation in the central left lower lobe as well as on the right basilar lobe with unstable area of chronic loculated pleural effusion and mild right-sided pleural thickening, and COPD. Also patient underwent follow up chest x-ray that slightly improved. HOSPITAL COURSE: This is a very pleasant 86 years old gentleman who has been presenting to [facility] from [facility] where he was doing rehab after initially has had speech therapy to [facility]. It is important to note that the patient has a history of recurrent aspiration pneumonia and COPD as well as the diagnosis of Parkinson disease. So he has been transferred from [facility] with facility-acquired pneumonia and recurrent aspiration. For further details, please see history and physical of Dr. Fer Connell. The patient had had a CT scan of the chest without contrast during this hospitalization which showed some bilateral pulmonary nodules that have been very concerning for malignancy as well as a chronic sliding increasing right-sided pleural effusion. As a Discharge Summary [address] [address] NAME: HAVEN HUBER : [birth year] STATUS : ADM IN PAT#: [id number] AGE: 86 ADM/REG DATE : 01/07/17 MR#: [id number] REPORT SERV DATE: 01/14/17 DICTATED BY: PERI MILLER DATE: 01/13/17 REPORT STATUS : Draft TRANSCRIBED BY: MONICO DATE: 01/13/17 result, the Pulmonary has been consulted Dr. Roberto with Dr. Lua from Pulmonary have evaluated the patient. Initially, they did not recommend any further intervention since the patient would not be a candidate for any chemotherapy and they recommended palliative care. However, after discussing with the patient's family who have the power of bankruptcy attorney, they have requested to have a CT Surgery to evaluate the patient mostly in regard to his chronic loculated pleural effusion. Currently, Dr. Miller's consult has been placed and the patient awaits to be evaluated by CT Surgery. The patient's family is not ready for palliative care currently. He is improving clinically and symptomatically with IV antibiotics and aggressive pulmonary treatment despite the fact that he has severe near end- stage COPD and also he started with the speech pathology during this hospitalization. He is continuing on appropriate IV antibiotic coverage, and after discussing with the family, their goal would be the patient to go to inpatient [facility] if possible after being evaluated by CT Surgery. We have discussed extensively with the patient's family, and we told him that he would not be likely a biopsy candidate much has treatment candidate, and in regard to the patient's chronic loculated effusion, we would not recommend any further intervention but evaluation by CT surgery, Dr. Miller has been requested that family and currently is pending. MEDICATIONS AT DISCHARGE: Current medications at the Interim discharge summary include aspirin 81 p.o. daily, Lipitor 40 p.o. at bedtime, Sinemet (carbidopa and levodopa) 1 tablet p.o. t.i.d., Maxipime 1 g IV every 8 hours, vitamin D, cholecalciferol 1000 p.o. daily, Cardizem CD 180 p.o. daily, Colace 100 p.o. t.i.d., Cymbalta 60 p.o. daily, Lovenox 40 subcu daily, iron sulfate 300 b.i.d., Flonase 1 spray each nostril b.i.d., Humibid DM 600 p.o. t.i.d., Namenda 10 p.o. b.i.d., multivitamin one tablet p.o. daily, 1 capsule p.o. daily, Protonix 40 p.o. b.i.d., MiraLAX one packet p.o. daily, Florastor one capsule b.i.d., Levemir 10 units subcu b.i.d., and vancomycin 1250 mg IV daily. It is also important to note that the patient is a do not resuscitate according to patient, which is well stated. My partner is going to start seeing Mr. Huber for 01/15/2017. HOWARD/MONICO Peri Miller M.D. / [id number] CC: Esteban Caro D.O.
--- NOTE | ~2017-01-07 | HP ---
History And Physical [address] [place]. [address] NAME: HAVEN SHANKS : [birth year] STATUS : ADM IN [facility]#: [id number] AGE: 86 ADM/REG DATE : 01/07/17 MR#: [id number] REPORT SERV DATE: 01/08/17 DICTATED BY: ROBBY PIEDRA DATE: 01/08/17 REPORT STATUS : Draft TRANSCRIBED BY: MODL DATE: 01/08/17 DATE OF ADMISSION: 01/07/2017 CHIEF COMPLAINT: An 86-year-old male presenting with facility-acquired pneumonia. HISTORY OF PRESENTING ILLNESS: The patient's history was obtained through careful interview with the patient and son-in-law coupled with review of [facility] medical records. The patient presented to the hospital about six or seven weeks ago with aspiration pneumonia, urinary tract infection. Had a prolonged hospital stay and suffered quite a bit of debilitation from that. He was found to have a swallowing dysfunction and because of weakness and need for speech therapy, he was discharged to [facility], where he spent approximately 10 days undergoing rehabilitation. Although he made some progress, it was thought that the progress could still improve, so the patient was then transferred to [facility], where he has been rehabilitating for the last week. Although he has been strengthened some over this period of time, over the last few days, he has really taken a turn for the worse. He has had difficulty participating with physical therapy, increasing weakness. Then, over the last two days, he has become lethargic, confused, and today was overtly somnolent. He has had a cough that is nonproductive. He has had increasing shortness of breath. He has had a very poor appetite. There are no pain complaints at all. No chest pain. No abdominal pain. No back pain. No headache. No nausea or vomiting. No diarrhea. No fevers or chills. REVIEW OF SYSTEMS: Otherwise, a 14-point review of systems was obtained and was negative. PAST MEDICAL HISTORY: 1. Aspiration pneumonia with dysphagia. 2. Coronary artery disease, status post CABG. 3. COPD. 4. Hypertension. 5. Dementia. 6. Parkinson's. 7. Hepatitis C. 8. Pancreatitis with gangrenous changes in the past. 9. C difficile colitis. History And Physical [facility] [address] [address] NAME: HAVEN SHANKS : [birth year] STATUS : ADM IN [facility]#: [id number] AGE: 86 ADM/REG DATE : 01/07/17 MR#: [id number] REPORT SERV DATE: 01/08/17 DICTATED BY: ROBBY PIEDRA DATE: 01/08/17 REPORT STATUS : Draft TRANSCRIBED BY: MODL DATE: 01/08/17 10.Pleural effusion, lung mass, followed outpatient by Dr. Solomon Fleming. 11.Chronic anemia. Hematocrit of 23% to 31%. 12.Gastroesophageal reflux disorder. 13.Chronic kidney disease. 14.Diabetes. 15.Myopathy. 16.Urinary tract infection. 17.Neuropathy. 18.Phimosis. PAST SURGICAL HISTORY: 1. CABG. 2. Bilateral knee surgeries. 3. Left hand surgery. ALLERGIES: AMBIEN AND ARICEPT. CODE STATUS: DNR. SOCIAL HISTORY: Quit smoking in 2004. Rare alcohol use. Had been living at [facility] before undergoing rehabilitation at [facility]. He is a . Ambulates with a walker. Has one daughter, two grandsons. He grew up in the [place]. 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 FAMILY HISTORY: Diabetes. CURRENT MEDICATIONS: Include Tylenol, duo nebulizers, Brovana, aspirin 81 mg p.o. daily, Lipitor 40 mg p.o. daily, Pulmicort, Sinemet p.o. t.i.d., vitamin D, Cardizem CD 120 mg p.o. daily, Colace 100 mg p.o. b.i.d., Cymbalta 60 mg p.o. daily, iron supplement 325 mg p.o. b.i.d., sliding scale insulin, lactobacillus one tablet p.o. b.i.d., Namenda 10 mg p.o. b.i.d., multivitamin, Protonix 40 mg p.o. b.i.d., MiraLAX packet daily, omega-3 fatty acids, PHYSICAL EXAMINATION: VITAL SIGNS: Temperature 97.9, pulse 113, blood pressure 99/30, respiratory rate 20, O2 saturation 95% on 3 L nasal cannula. GENERAL: An ill-appearing male in evidence of no distress, but very lethargic. HEENT: Pupils equal, round, and reactive to light. No conjunctival pallor. No scleral icterus. Nares are patent. Oropharynx is clear of obstruction. Dry mucous membranes. NECK: Trachea midline. No thyromegaly. LYMPH: No cervical lymphadenopathy. No supraclavicular lymphadenopathy. RESPIRATORY: Scattered rhonchi on exam. Diminished breath sounds in the left lung. I do not appreciate focal egophony though. No rales. The patient has a slightly labored respiratory effort. CARDIOVASCULAR: Tachycardic. Regular rhythm. No murmurs, rubs, or gallops. No current extremity edema is appreciated. ABDOMEN: Soft, nontender, nondistended. Normal bowel sounds auscultated throughout. No History And Physical [address] [address] NAME: HAVEN SHANKS : [birth year] STATUS : ADM IN [facility]#: [id number] AGE: 86 ADM/REG DATE : 01/07/17 MR#: [id number] REPORT SERV DATE: 01/08/17 DICTATED BY: ROBBY PIEDRA DATE: 01/08/17 REPORT STATUS : Draft TRANSCRIBED BY: MONICO DATE: 01/08/17 hepatosplenomegaly. DERMATOLOGICAL: Warm and dry extremities. No pallor. No cyanosis. PSYCHIATRIC: A flat affect. He is lethargic, but easily arousable. He is oriented to location, but poorly oriented to time. He has difficulty with orientation to his recent history as well. He claims to be in a good mood and is cooperative. LABORATORY DATA: Lactic acid 2.6, albumin 1.8. Troponin negative. INR 1.2. White blood cell count 7.1, hemoglobin 8, hematocrit 25, platelets 189. Sodium 140, potassium 4.0, chloride 103, bicarb 30, BUN 14, creatinine 1.18, glucose 322. Urinalysis shows small leukocyte esterase with 31 white blood cells. STUDIES: 1. Chest x-ray by my own evaluation shows left upper lung pneumonia, but really bilateral infiltrates, probably an underlying chronic interstitial lung disease as well. 2. EKG by my own evaluation shows sinus rhythm, right bundle-branch block. ASSESSMENT AND PLAN: 1. Severe sepsis with lactic acid of 2.6, tachycardia, hypotension, encephalopathy. Check blood cultures. Place on IV antibiotics. 2. Facility-acquired pneumonia. Check swallow studies. Check blood cultures. Place on IV cefepime, IV vancomycin. 3. Chronic obstructive pulmonary disease. Place on duo nebulizers. 4. Parkinson's disease. 5. Uncontrolled diabetes. Add Levemir sliding scale insulin. Check hemoglobin A1c. 6. Hypoalbuminemia. Check prealbumin. 7. Chronic anemia. Monitor closely. KPL/MODL Robby Piedra M.D. / [id number] CC: Tejinder Diaz D.O.
--- NOTE | ~2017-01-07 | DS ---
Discharge Summary [address] [place]. [address] NAME: HAVEN SHANKS : [birth year] STATUS : DIS IN PAT#: [id number] AGE: 86 ADM/REG DATE : 01/07/17 MR#: [id number] REPORT SERV DATE: 01/23/17 DICTATED BY: TONY OLIVARES DATE: 01/21/17 REPORT STATUS : Draft TRANSCRIBED BY: MONICO DATE: 01/21/17 ADMISSION DATE: 01/07/2017 DISCHARGE DATE: 01/21/2017 ADDENDUM: Dictating an addendum on my discharge summary done on 01/19/2017. Since that time, when I was about to discharge the patient, the family refused to send the patient home and appealed for the discharge. They were wanting the Podiatry to drop by so that his toenails could be cut. We are not able to find any [employer] who is willing to come to the hospital for that and we told the family and they got upset and said it was unacceptable. After two days of talking with them, they finally decided that it is okay to send the patient home today. The patient will now be discharged with the same final diagnoses that I dictated on , same medications that I dictated on 01/19/2017, and same followup as well. BETO/MONICO Tony Olivares M.D. / [id number] CC: Tejinder Diaz D.O. Carlos Baleeiro, M.D. William Warren, M.D. Robert Warren Goldmann, M.D.
--- NOTE | ~2017-01-07 | CN ---
Consultation Report [address] [facility] [place]. [address] NAME: HAVEN HUBER : [birth year] STATUS : ADM IN PAT#: [id number] AGE: 86 ADM/REG DATE : 01/07/17 MR#: [id number] REPORT SERV DATE: 01/15/17 DICTATED BY: STEW NORTON DATE: 01/15/17 REPORT STATUS : Draft TRANSCRIBED BY: MODShane DATE: 01/15/17 DATE OF CONSULTATION: 01/15/2017 REASON FOR CONSULTATION: Tachycardia. HISTORY OF PRESENT ILLNESS: Mr. Huber is a very unfortunate 86-year-old male, whom we have been asked to see by the Hospitalist Service for largely at the family's request for management of arrhythmia. The patient is known to my partner, Dr. Ajit Adams, who manages him for his history of atrial fibrillation and coronary heart disease with prior CABG in 2007. He has been hospitalized since 01/07/2017 with a diagnosis of respiratory failure and recent imaging demonstrating lung mass, felt to represent a neoplasm with associated pleural effusion. He has been seen by the Pulmonary Service and by Thoracic Surgery and based on evaluation and discussion with the patient and family, a conservative approach has been adopted and palliative care is seeing the patient today. The patient has been having periods of tachycardia and the family has requested Cardiology input for further management. History is limited to the medical record as the patient is not responding to my questions at this time. PAST MEDICAL HISTORY: 1. Coronary heart disease status post CABG, 2007. 2. Paroxysmal atrial fibrillation, currently on diltiazem 180 mg daily. No oral anticoagulation. 3. Chronic respiratory failure. 4. COPD. 5. Pulmonary nodules. 6. Recurrent aspiration pneumonia. MEDICATIONS: Reviewed per medical record. ALLERGIES: DONEPEZIL AND ZOLPIDEM. FAMILY HISTORY: Noncontributory. SOCIAL HISTORY: The patient is . He has a daughter. He formally worked in the [employer]. He is a former smoker, quit in 2014. REVIEW OF SYSTEMS: Unable to obtain. PHYSICAL EXAMINATION: VITAL SIGNS: Temperature is 98.5, pulse is approximately 100, blood pressure 142/62, 97% on 3 L. Consultation Report [address] [facility] [place]. [address] NAME: HAVEN HUBER : [birth year] STATUS : ADM IN PAT#: [id number] AGE: 86 ADM/REG DATE : 01/07/17 MR#: [id number] REPORT SERV DATE: 01/15/17 DICTATED BY: STEW NORTON DATE: 01/15/17 REPORT STATUS : Draft TRANSCRIBED BY: MONICO DATE: 01/15/17 GENERAL: Thin, cachectic male, chronically ill appearing. HEART: Rate is irregular. No prominent murmurs present. LUNGS: Sounds are coarse bilaterally. ABDOMEN: Soft. EXTREMITIES: Warm without edema. LABORATORY DATA: Reviewed, notable for hemoglobin of 11.4, creatinine 1.02, potassium of 3.9, magnesium of 2.1. Troponin less than 0.02. BNP 88.4. STUDIES: Telemetry demonstrates irregular wide-complex tachycardia suggestive of atrial fibrillation with conduction delay. Of note, there are frequent periods of sinus rhythm interspersed raising the possibility of MAT. Currently, heart rate is 100, maximum heart rate is as high as 150, frequent pauses of less than 2 seconds are noted. EKG demonstrates sinus rhythm, right bundle branch block, frequent PVCs. IMPRESSIONS/RECOMMENDATIONS: 1. Lung mass with associated pleural effusion, suspect malignancy. 2. Chronic respiratory failure/chronic obstructive pulmonary disease. 3. Paroxysmal atrial fibrillation with tachycardia. 4. History of coronary artery disease/CABG. Recommend ongoing strategy of rate control. The patient currently to be managed with diltiazem 180 extended release. We will provide additional 60 mg now and adjust a.m. dose to 240. This could be titrated further based on his heart rate and blood pressure response versus addition of metoprolol as needed for symptom control. Thank you for consultation. We will follow with you. SHANIQUA/MONICO Stew Norton MD / [id number] CC: Tejinder Diaz D.O.
--- NOTE | ~2017-01-07 | CN ---
Consultation Report [facility] [address] [place]. [address] NAME: HAVEN HSANKS : [birth year] STATUS : ADM IN [facility]#: [id number] AGE: 86 ADM/REG DATE : 01/07/17 MR#: [id number] REPORT SERV DATE: 01/14/17 DICTATED BY: BIANCA ALDANA DATE: 01/14/17 REPORT STATUS : Draft TRANSCRIBED BY: MODL DATE: 01/14/17 CONSULTATION HISTORY AND PHYSICAL DATE OF CONSULTATION: 01/14/2017 REASON FOR CONSULTATION: Chronic left loculated pleural effusion and bilateral pulmonary nodules. BRIEF HISTORY: This is an 86-year-old male with a significant past medical history for severe COPD, a chronic left loculated pleural effusion, bilateral pulmonary lung nodules concerning for primary lung carcinoma, Parkinson disease, as well as recurrent aspiration pneumonia. He also has some dementia and Parkinson disease. He is currently a DNR. He was previously residing at a rehab facility when he was admitted for respiratory failure secondary to bilateral aspiration pneumonia. He received treatment at that time and was released back to his rehab facility, then began experiencing progressive shortness of breath and was transferred back to [facility], at which point he was placed on further antibiotic, steroids, and breathing treatments. He underwent a CT of the chest on 01/10/2017, which demonstrated slight increase in his lingular pulmonary nodule as well as right upper lobe pulmonary nodule and a slight increase in his chronic left loculated pleural effusion. We are asked to see the patient to make recommendations regarding his bilateral pulmonary nodules as well as his chronic loculated left pleural effusion. PAST MEDICAL HISTORY: Significant for aspiration pneumonia, chronic loculated left pleural effusion, dyslipidemia, gastroesophageal reflux disease, hypertension, severe COPD, dementia, coronary artery disease status post coronary artery bypass grafting by Dr. Stauffer in 2007, diabetes mellitus, history of C. diff, and urinary tract infection, hepatitis C, and Parkinson disease. PAST SURGICAL HISTORY: Significant for the above-mentioned coronary artery bypass grafting, cholecystectomy, left knee surgery, and left hand surgery. SOCIAL HISTORY: The patient is and has a daughter. He previously worked in a [employer], and smoked a pack per day for approximately 60 years but quit in 2014. MEDICATIONS: Include DuoNeb, Brovana, aspirin, Lipitor, Pulmicort, Sinemet, diltiazem, duloxetine, insulin, Namenda, pantoprazole. ALLERGIES: INCLUDING ZOLPIDEM AND DONEPEZIL. FAMILY HISTORY: Significant for diabetes mellitus. REVIEW OF SYSTEMS: Significant for shortness of breath. A complete review of systems is not obtained secondary to the patient lack of communication. Consultation Report [address] [place]. [address] NAME: HAVEN SHANKS : [birth year] STATUS : ADM IN [facility]#: [id number] AGE: 86 ADM/REG DATE : 01/07/17 MR#: [id number] REPORT SERV DATE: 01/14/17 DICTATED BY: BIANCA ALDANA DATE: 01/14/17 REPORT STATUS : Draft TRANSCRIBED BY: MODShane DATE: 01/14/17 PHYSICAL EXAMINATION: GENERAL: This is an 86-year-old male who is alert, in no acute distress. VITAL SIGNS: Oxygen saturation 98% on 3 L, blood pressure 123/58, heart rate 84, temperature 98.4. HEENT: Normocephalic, atraumatic. Pupils equal, round, reactive to light. Ears, nose, and throat without lesion or exudate. NECK: Supple with no lymphadenopathy, JVD, or bruits. Trachea midline. No obvious goiter. CHEST: Symmetrical with no obvious chest wall deformities. There is scarring from his previous sternotomy. CARDIOVASCULAR: Regular rate and rhythm. S1, S2. No murmurs, rubs, or gallops. RESPIRATORY: Decreased breath sounds bilaterally greater on the left than the right. ABDOMEN: Soft, nontender, nondistended with positive bowel sounds in all 4 quadrants. No hepatosplenomegaly. : The patient voids without difficulty. Further examination was deferred. MUSCULOSKELETAL: No obvious kyphosis or scoliosis. SKIN: Warm and dry with normal turgor. No obvious breakdown or lesions noted. PSYCHIATRIC: The patient is pleasantly demented. DATA: CT of the chest dated 01/10/2017 showing 2.4 x 1.7 lingular nodule that remains similar in size compared to CT of 11/19/2016, stable, rounded, subpleural nodule in the posterolateral right upper lobe measuring 2.2 x 1.6 cm. Stable areas of loculated pleural effusion of the left hemithorax. Mild right-sided pleural thickening. No new areas of airspace consolidation. No evidence of COPD. LABORATORIES: Dated 01/14/2017, sodium 137, potassium 3.7, BUN 19, creatinine 0.98, glucose 133. White blood cell count 9.5, hemoglobin 11.7, hematocrit 35, platelet count 210. PROBLEM LIST: 1. Bilateral pulmonary nodules. 2. Chronic loculated left pleural effusion. 3. Aspiration pneumonia. 4. Dyslipidemia. 5. Gastroesophageal reflux disease. 6. Hypertension. 7. Dementia. 8. Parkinson. 9. Diabetes mellitus. 10.Coronary artery disease. IMPRESSION AND PLAN: This is an 86-year-old male who has an extensive medical history that is complicated by recurrent aspiration pneumonia, dementia, and Parkinson disease. He has a chronic loculated left pleural effusion that has remained stable since November and bilateral pulmonary nodules concerning for primary lung carcinoma that are also stable since November of this year. Given the patient's DNR status as well as his multiple comorbid conditions, I Consultation Report [address] [place]. [address] NAME: HAVEN SHANKS : [birth year] STATUS : ADM IN [facility]#: [id number] AGE: 86 ADM/REG DATE : 01/07/17 MR#: [id number] REPORT SERV DATE: 01/14/17 DICTATED BY: BIANCA ALDANA DATE: 01/14/17 REPORT STATUS : Draft TRANSCRIBED BY: MONICO DATE: 01/14/17 would not recommend any intervention to the chronic left loculated pleural effusion given that his blood cultures and fluid cultures in the past have been negative. If the family wish to pursue any further diagnostics regarding his bilateral lung nodules, I would recommend outpatient PET-CT given that any treatment would likely be limited to SBRT. The family has discussed in the past palliative care and that would certainly be supportive in this case. We will be available in the future, but we would not recommend any intervention at this time. AM/MONICO Bianca Aldana NP / [id number] CC: Tejinder Spann D.O.
--- NOTE | ~2017-01-07 | CN ---
Consultation Report [facility] [address] [place]. [address] NAME: HAVEN HUBER : [birth year] STATUS : ADM IN PAT#: [id number] AGE: 86 ADM/REG DATE : 01/07/17 MR#: [id number] REPORT SERV DATE: 01/10/17 DICTATED BY: VALENTÍN SOLIS DATE: 01/10/17 REPORT STATUS : Draft TRANSCRIBED BY: MODL DATE: 01/10/17 CONSULTATION NOTE DATE OF CONSULTATION: 01/10/2017 CHIEF COMPLAINT: Dyspnea. HISTORY OF PRESENT ILLNESS: Mr. Haven Huber is an 86-year-old male with a past medical history significant for severe COPD, recurrent aspiration pneumonia, chronic pleural effusion, pulmonary nodules concerning for primary lung, and Parkinson's who presents to [facility] with complaints of worsening shortness of breath. It should be noted that the patient was hospitalized as recently as six to eight weeks ago. He has had a progressively declining course as of late. Mr. Huber has been seen by Dr. Solomon Fleming in the past for his pulmonary needs. He does have known severe COPD. He is on the appropriate pulmonary medications. He is on chronic oxygen supplementation. He is unable to quantify his exercise tolerance today. It should be noted that the patient provides a questionable history secondary to his dementia. That being said, the following information was garnered from the patient as well as extensive chart review. Apparently, the patient was here as recently as November when he was treated for recurrent bilateral aspiration pneumonia as well as respiratory failure. The patient did eventually improve and transition to a detention facility where he resides. Apparently, he had some worsening shortness of breath and was eventually brought to [facility]. Upon arrival, he was found to have a systolic blood pressure of 99. He was afebrile. He had good oxygenation on 3 liters. His initial blood work revealed a white blood cell count of 7100. He was placed on antibiotics, steroids, and breathing treatments. He has been referred to the Pulmonary Service for further assessment. Currently, Mr. Huber does confirm some mild dyspnea. Interestingly, he states his breathing is not too bad today. He is coughing some, producing some sputum. He does have some complaints of wheezing in his chest. The patient does have known coronary artery disease, hypertension, and dyslipidemia. He currently denies murmurs, angina, or palpitations. In regard to constitutional symptoms, he currently denies fever, chills, nausea, vomiting, chest pain, abdominal pain, or edema. PAST MEDICAL HISTORY: 1. Dyslipidemia. 2. Gastroesophageal reflux disease. Consultation Report [address] [address] NAME: HAVEN HUBER : [birth year] STATUS : ADM IN PAT#: [id number] AGE: 86 ADM/REG DATE : 01/07/17 MR#: [id number] REPORT SERV DATE: 01/10/17 DICTATED BY: VALENTÍN SOLIS DATE: 01/10/17 REPORT STATUS : Draft TRANSCRIBED BY: MODShane DATE: 01/10/17 3. Hypertension. 4. Aspiration pneumonia. 5. Severe COPD. 6. Dementia. 7. Coronary artery disease, status post CABG. 8. Diabetes mellitus. 9. C. diff. 10.UTI. 11.Hepatitis C. 12.Chronic loculated pleural effusion. 13.Parkinson's. PAST SURGICAL HISTORY: 1. CABG. 2. Cholecystectomy. 3. Left knee surgery. 4. Left hand surgery. FAMILY HISTORY: The patient denies family history of lung disease. SOCIAL HISTORY: The patient is . He has a daughter. He previously worked in a [employer]. TOBACCO/ALCOHOL: The patient states he quit smoking approximately 12 years ago, prior to this time, he smoked a pack a day for probably 60 years. MEDICATIONS: 1. DuoNebs. 2. Brovana. 3. Aspirin 81 mg. 4. Lipitor 40 mg. 5. Pulmicort 0.5 mg. 6. Sinemet. 7. Diltiazem 120 mg. 8. Duloxetine 60 mg. 9. Insulin. 10.Namenda 10 mg. 11.Pantoprazole 40 mg. ALLERGIES: THE PATIENT HAS KNOWN ALLERGY TO ZOLPIDEM AND DONEPEZIL. REVIEW OF SYSTEMS: A complete review of systems was performed with pertinent positives and negatives contained within the body of the HPI. Consultation Report [address] [place]. [address] NAME: HAVEN HUBER : [birth year] STATUS : ADM IN [facility]#: [id number] AGE: 86 ADM/REG DATE : 01/07/17 MR#: [id number] REPORT SERV DATE: 05/04/17 DICTATED BY: VALENTÍN SOLISORN DATE: 01/10/17 REPORT STATUS : Draft TRANSCRIBED BY: MODShane DATE: 01/10/17 PHYSICAL EXAMINATION: VITAL SIGNS: 150/67, heart rate is 86, T-max is 97.8, respiratory rate is 20, and SpO2 is 96% on 3 liters. GENERAL: The patient is a pleasant, well-nourished/well-developed male who is not currently exhibiting any signs of acute distress. Skin: Skin with appropriate texture and turgor. No rashes, lesions, or ulcers. Nails are clear without cyanosis or clubbing. HEENT: Head: Skull is normocephalic/atraumatic. Facies symmetric. No masses or lesions. Eyes: Sclera anicteric, conjunctiva pink without exudates. Extra ocular movements intact. Pupils are equal, round, reactive to light. Ears: Auricles and tragus without pain to palpation. Hearing is grossly intact. Nose: Bilateral nasal patency. Sinuses without tenderness upon palpation. Throat: Dentition. Lips, oral mucosa, tongue, palate, and pharynx pink and moist without lesions. Uvula rises equally on phonation. Tongue midline without deviation. NECK: Neck supple. Trachea midline. No cervical lymphadenopathy appreciated. THORAX/LUNGS: Diffuse wheezing and rhonchi appreciated throughout. CARDIOVASCULAR: Regular rate and rhythm. No murmurs, rubs, or gallops. Anterior chest without thrills, heaves, or lifts. ABDOMEN: Soft. Non-distended, non-tender. Active bowel sounds in all four quadrants. No hepatosplenomegaly noted. PERIPHERAL VASCULAR: No edema. No varicosities, stasis changes, open sores, ulcerations, or phlebitis. 2+ pulses in radial and dorsalis pedis. MUSCULOSKELETAL: Full AROM and PROM in all joints. No evidence of erythema, deformity, or crepitus. NEUROLOGIC: CN II - XII grossly intact. Good muscle bulk and tone bilaterally. Strength 5/5 throughout. PSYCHIATRIC: Patient demonstrates good judgment and insight. Pt is A&O x 3. ACCESSORY DATA: Reveals creatinine 1.14. White blood cell count is 8.1. CT of the chest is pending. IMPRESSION: 1. Pulmonary nodules concerning for malignancy. 2. Chronic left-sided loculated pleural effusion. 3. Aspiration pneumonia, currently on antibiotic coverage. 4. Severe chronic obstructive pulmonary disease. 5. Parkinson disease. PLAN: 1. At this time, a CT of the chest has already been planned. That being said, if he were to have progression of these nodules, he would likely not be a biopsy candidate, much less a treatment candidate. 2. In regard to the patient's chronic loculated effusion, we would not recommend any further interventions. 3. In regard to the patient's aspiration pneumonia in the setting of a detention Consultation Report [address] [address] NAME: HAVEN HUBER : [birth year] STATUS : ADM IN PAT#: [id number] AGE: 86 ADM/REG DATE : 01/07/17 MR#: [id number] REPORT SERV DATE: 01/10/17 DICTATED BY: VALENTÍN SOLIS DATE: 01/10/17 REPORT STATUS : Draft TRANSCRIBED BY: MONICO DATE: 01/10/17 facility, he has been placed on the appropriate antibiotic coverage. 4. In regard to the patient's severe near end-stage COPD, he will be placed on a full armamentarium of nebulized medications. 5. The patient has appropriately have his code status, that is DNR. Moving forward, a Palliative Care consult may be very reasonable at this point. NATASHA/MONICO Valentín Solis PA-C / [id number] CC: Tejinder Spann D.O.
--- NOTE | ~2017-01-07 | DS ---
Discharge Summary [address] [place]. [address] NAME: HAVEN SHANKS : [birth year] STATUS : ADM IN [facility]#: [id number] AGE: 86 ADM/REG DATE : 01/07/17 MR#: [id number] REPORT SERV DATE: 01/20/17 DICTATED BY: TONY OLIVARES DATE: 01/19/17 REPORT STATUS : Draft TRANSCRIBED BY: MODL DATE: 01/19/17 ADMISSION DATE: 01/07/2017 DISCHARGE DATE: CONSULTING PHYSICIAN: Dr. Garcia for Palliative Care, Dr. Carballo for Pulmonary, Dr. Ajit Adams for Cardiology, Dr. Moseley for [facility]. FINAL DIAGNOSES: 1. Recurrent aspiration pneumonia. Treated. 2. Dysphagia. 3. Chronic hypoxic respiratory failure. 4. Loculated left pleural effusion. 5. Chronic obstructive pulmonary disease. 6. Coronary artery disease with history of coronary artery bypass grafting. 7. Hypertension. 8. Paroxysmal atrial fibrillation. 9. Diabetes. 10.Bilateral pulmonary nodules. 11.History of gastrointestinal bleed. 12.Depression. 13.Hepatitis C. 14.Anemia of chronic disease. 15.Parkinson's. 16.Dementia. HOSPITAL COURSE: Please refer to the H and P done by Dr. Connell on 01/08/2017 and the interim discharge summary done by Dr. Pino on 01/14/2017. Since I took care of this patient, the patient is finishing up his antibiotics for his pneumonia and the patient remained stable from in terms of pulmonary point of view. His saturation has been wonderful in the upper 90s with 2 to 3 L of oxygen. Pulmonary then signed off. The family wanted Dr. Ajit Adams to see the patient, he dropped by. For the paroxysmal atrial fibrillation, we already increased the Cardizem from 120 to 240 and it kept his heart rate under control. The patient's civilian jail officer did not have anything to offer, and both Pulmonary and Cardiology agreed for palliative care/hospice and Cardiology signed off as well. We got Palliative Care to see the patient and they discussed with the family and the family prefers for the patient to go to [facility] or nothing. We got [facility] involved and they refused the patient as the patient was not cooperative with physical therapy. Case Management got involved and they discussed with the patient's family for several days about the options and finally they decided that they will be just going to bring the patient home with home health. Of note, [facility] was consulted and they did not recommend any kind of intervention for the pleural effusion and pulmonary nodules. The patient will now be discharged to home with family. He will be following up with his PCP, Dr. Esteban Caro. He will follow up with his railroad car truck builder, Dr. Solomon Fleming. He will follow up with his civilian jail officer, Dr. Ajit Adams. The patient has a poor prognosis with his dementia, recurrent aspiration, dysphagia, and the pulmonary nodules which could be cancer. Unfortunately, he would not be a good candidate for biopsy and treatment with his underlying medical condition. This has Discharge Summary [address] [address] NAME: HAVEN SHANKS : [birth year] STATUS : ADM IN [facility]#: [id number] AGE: 86 ADM/REG DATE : 01/07/17 MR#: [id number] REPORT SERV DATE: 01/20/17 DICTATED BY: TONY OLIVARES. DATE: 01/19/17 REPORT STATUS : Draft TRANSCRIBED BY: MONICO DATE: 01/19/17 been explained to the family. The patient will be on the following medications. Aspirin 81 mg a day, Lipitor 40 mg at bedtime, Sinemet 25/100 three times a day, vitamin D 1000 units a day, diltiazem CD 240 mg a day, Colace 100 mg three times a day, Cymbalta 60 mg a day, iron 325 mg twice a day, subcu insulin level 2, multivitamin once a day, Namenda 10 mg twice a day, acidophilus one tab twice a day. There is a probiotic, Protonix 40 mg twice a day, MiraLAX one packet a day, Brovana 15 mcg twice a day, Pulmicort 0.5 mg twice a day, fatty acid one capsule a day, DuoNebs inhaled q.6 hours, Tylenol p.r.n.. BETO/MONICO Tony Olivares M.D. / [id number] CC: Tejinder Diaz Vollberg, D.O.
[2017-01-07 21:55] LABS: BASOPHILS 0.3 %; BASOPHILS ABSOLUTE 0.02 10/3/uL (0.0-0.16); EOSINOPHILS 2.4 %; EOSINOPHILS ABSOLUTE 0.17 10/3/uL (0.0-0.53); HEMOGLOBIN 8.4 g/dL (13.6-17.8); IMMATURE GRANULOCYTES 0.8 %; IMMATURE GRANULOCYTES ABSOLUTE 0.06 10/3/uL (0.0-0.11); LYMPHOCYTES 15.9 %; LYMPHOCYTES ABSOLUTE 1.13 10/3/uL (0.67-4.30); MEAN CORPUS HGB CONC 33.2 g/dL (32.0-36.0); MEAN CORPUSCULAR HEMOGLOB 30.7 pg (26.0-34.0); MEAN CORPUSCULAR VOLUME 92.3 fL (80-100); MEAN PLATELET VOLUME 8.7 fL (9.2-13.0); MONOCYTES 7.6 %; MONOCYTES ABSOLUTE 0.54 10/3/uL (0.21-1.20); NEUTROPHILS ABSOLUTE 5.18 10/3/uL (2.02-8.40); RBC DISTRIBUTION WIDTH 16.8 % (12.0-16.0); RED CELL COUNT 2.74 10/6/uL (4.7-6.1); WHITE BLOOD CELLS 7.1 10/3/uL (4.5-10.5)
[2017-01-07 21:57] LABS: HEMATOCRIT 25.3 % (40.0-51.0); MANUAL DIFF NO %; PLATELET COUNT 184 10/3/uL (150-400)
[2017-01-07 22:04] LABS: INTERNATIONAL NORMAL RATI 1.2 UNITS (-); PROTIME (NOT ORD) 14.8 SEC (12.0-14.5)
[2017-01-07 22:08] LABS: ASCORBIC ACID (UR NOT ORDER) 40 (NEG); BILIRUBIN, URINE NEGATIVE (NEG); KETONE, URINE NEGATIVE (NEG); LEUKOCYTE ESTERASE(NOT OR SMALL (NEG); NITRITE (URINE) NEG (NEG); WBC (NOT ORDERED) (RFLEX) 31 (0-5)
[2017-01-07 22:12] LABS: A/G RATIO 0.5 (0.7-1.9); ALBUMIN 1.8 G/DL (3.5-5.0); ALKALINE PHOSPHATASE 84 U/L (45-117); BUN (BLOOD UREA NITROGEN) 14 MG/DL (6-23); CALCIUM, SERUM 8.5 MG/DL (8.5-10.4); CHLORIDE, SERUM 103 MMOL/L (96-112); CO2 (CARBON DIOXIDE) 31 MMOL/L (24-34); CREATININE 1.18 MG/DL (0.70-1.30); GFR AFRICAN AMERICAN 63 ML/MIN (>=60); GFR NON AFRICAN AMERICAN 55 ML/MIN (>=60); GLUCOSE, SERUM 322 MG/DL (60-99); SGOT(AST) 13 U/L (5-40); SGPT(ALT) 6 U/L (5-65); SODIUM, SERUM 140 MMOL/L (135-148); TOTAL BILIRUBIN 0.4 MG/DL (0-1.2); TOTAL PROTEIN 5.8 G/DL (6.0-8.5); TROPONIN I <0.02 NG/ML (<0.05)
[2017-01-07] MEDS ORDERED: MIRALAX POWDER1 PKT PO (23:18)
[2017-01-07] MEDS ORDERED: ASAB PO (23:19)
[2017-01-07] MEDS ORDERED: CYMBALTA60 PO (23:19)
[2017-01-07] MEDS ORDERED: LIPITOR40 PO (23:19)
[2017-01-07] MEDS ORDERED: VITAMIN D31000 UNIT PO (23:20)
[2017-01-07] MEDS ORDERED: SIN25 PO (23:20)
[2017-01-07] MEDS ORDERED: DSS PO (23:20)
[2017-01-07] MEDS ORDERED: ACIDOPHILU2 PO (23:21)
[2017-01-07] MEDS ORDERED: OMEGA PO (23:21)
[2017-01-07] MEDS ORDERED: NAMENDA10 MG PO (23:21)
[2017-01-07] MEDS ORDERED: PROTONIX PO (23:21)
[2017-01-07] MEDS ORDERED: BROVANA15 MCG INH (23:22)
[2017-01-07] MEDS ORDERED: DUONEB INH (23:22)
[2017-01-07] MEDS ORDERED: PULRESP.5 INH (23:22)
[2017-01-07] MEDS ORDERED: CENTRUM PO (23:23)
[2017-01-07] MEDS ORDERED: 8 HOUR650 MG PO (23:23)
[2017-01-07] MEDS ORDERED: FERROUS SULF325 M1 PO (23:23)
[2017-01-07] MEDS ORDERED: HUMALOG SC (23:24)
[2017-01-07] MEDS ORDERED: CARDCD120 PO (23:24)
[2017-01-08 05:40] LABS: BUN (BLOOD UREA NITROGEN) 12 MG/DL (6-23); CALCIUM, SERUM 7.9 MG/DL (8.5-10.4); CHLORIDE, SERUM 109 MMOL/L (96-112); CO2 (CARBON DIOXIDE) 27 MMOL/L (24-34); CREATININE 0.97 MG/DL (0.70-1.30); GFR AFRICAN AMERICAN 80 ML/MIN (>=60); GFR NON AFRICAN AMERICAN 69 ML/MIN (>=60); POTASSIUM, SERUM 4.1 MMOL/L (3.5-5.3); SGOT(AST) 10 U/L (5-40); SGPT(ALT) 10 U/L (5-65); SODIUM, SERUM 143 MMOL/L (135-148); TOTAL BILIRUBIN 0.6 MG/DL (0-1.2); TOTAL PROTEIN 5.8 G/DL (6.0-8.5); TROPONIN I <0.02 NG/ML (<0.05)
[2017-01-08 05:41] LABS: A/G RATIO 0.8 (0.7-1.9); ALBUMIN 2.5 G/DL (3.5-5.0); ALKALINE PHOSPHATASE 66 U/L (45-117); GLOBULIN 3.3 G/DL (2.5-4.1); GLUCOSE, SERUM 194 MG/DL (60-99)
[2017-01-08 05:47] LABS: B NATRIURETIC PEPTIDE (BNP) 80.4 PG/ML (< 100.0)
[2017-01-08 06:00] LABS: PROCALCITONIN 0.05 ng/mL (<0.5)
[2017-01-08 12:01] LABS: GLYCOHEMOGLOBIN (HbA1c) 6.4 % (4.7-6.1)
[2017-01-08 14:47] LABS: HEMATOCRIT 23.4 % (40.0-51.0); HEMOGLOBIN 7.5 g/dL (13.6-17.8); MEAN CORPUS HGB CONC 32.1 g/dL (32.0-36.0); MEAN CORPUSCULAR HEMOGLOB 29.9 pg (26.0-34.0); MEAN CORPUSCULAR VOLUME 93.2 fL (80-100); PLATELET COUNT 187 10/3/uL (150-400); RBC DISTRIBUTION WIDTH 16.4 % (12.0-16.0); RED CELL COUNT 2.51 10/6/uL (4.7-6.1); WHITE BLOOD CELLS 5.2 10/3/uL (4.5-10.5)
[2017-01-08 14:48] LABS: MANUAL DIFF YES %
[2017-01-08 15:39] LABS: ANISOCYTOSIS 1+ (5-10/OIF) (0-5/OIF); IMMATURE GRANS ABSOLUTE (CALC) 0.05 10/3/uL (0.0-0.11); LYMPHOCYTES 18 %; LYMPHOCYTES ABSOLUTE (CALC) 0.94 10/3/uL (0.67-4.30); METAMYELOCYTES 1 %; MONOCYTES 7 %; MONOCYTES ABSOLUTE (CALC) 0.36 10/3/uL (0.21-1.20); NEUTROPHILS ABSOLUTE (CALC) 3.85 10/3/uL (2.02-8.40); PLATELET ESTIMATE ADQ (ADEQUATE); SEGMENTED NEUTROPHIL (0) 74 %; TOTAL NUCLEATED CELLS 100
[2017-01-09 05:13] LABS: HEMOGLOBIN 10.6 g/dL (13.6-17.8); MANUAL DIFF YES %; MEAN CORPUS HGB CONC 33.1 g/dL (32.0-36.0); MEAN CORPUSCULAR HEMOGLOB 29.7 pg (26.0-34.0); MEAN CORPUSCULAR VOLUME 89.6 fL (80-100); MEAN PLATELET VOLUME 9.3 fL (9.2-13.0); PLATELET COUNT 174 10/3/uL (150-400); RBC DISTRIBUTION WIDTH 16.4 % (12.0-16.0); RED CELL COUNT 3.57 10/6/uL (4.7-6.1); WHITE BLOOD CELLS 5.2 10/3/uL (4.5-10.5)
[2017-01-09 05:30] LABS: A/G RATIO 0.7 (0.7-1.9); ALBUMIN 2.6 G/DL (3.5-5.0); ALKALINE PHOSPHATASE 68 U/L (45-117); CALCIUM, SERUM 8.5 MG/DL (8.5-10.4); CHLORIDE, SERUM 105 MMOL/L (96-112); CO2 (CARBON DIOXIDE) 24 MMOL/L (24-34); CREATININE 1.01 MG/DL (0.70-1.30); GFR AFRICAN AMERICAN 77 ML/MIN (>=60); GFR NON AFRICAN AMERICAN 66 ML/MIN (>=60); GLOBULIN 3.6 G/DL (2.5-4.1); POTASSIUM, SERUM 4.4 MMOL/L (3.5-5.3); SGOT(AST) 12 U/L (5-40); SODIUM, SERUM 140 MMOL/L (135-148); TOTAL PROTEIN 6.2 G/DL (6.0-8.5)
[2017-01-09 05:31] LABS: BUN (BLOOD UREA NITROGEN) 16 MG/DL (6-23); GLUCOSE, SERUM 350 MG/DL (60-99); SGPT(ALT) < 6 U/L (5-65); TOTAL BILIRUBIN 1.3 MG/DL (0-1.2)
[2017-01-10 05:53] LABS: CHLORIDE, SERUM 104 MMOL/L (96-112); CO2 (CARBON DIOXIDE) 26 MMOL/L (24-34); CREATININE 1.14 MG/DL (0.70-1.30); GFR AFRICAN AMERICAN 66 ML/MIN (>=60); GFR NON AFRICAN AMERICAN 57 ML/MIN (>=60); GLUCOSE, SERUM 328 MG/DL (60-99); POTASSIUM, SERUM 4.1 MMOL/L (3.5-5.3); SODIUM, SERUM 138 MMOL/L (135-148)
[2017-01-10 05:54] LABS: BUN (BLOOD UREA NITROGEN) 24 MG/DL (6-23)
[2017-01-10 05:58] LABS: BASOPHILS 0 %; EOSINOPHILS 0 %; HEMATOCRIT 29.7 % (40.0-51.0); IMMATURE GRANULOCYTES 0.6 %; IMMATURE GRANULOCYTES ABSOLUTE 0.05 10/3/uL (0.0-0.11); LYMPHOCYTES 5.1 %; LYMPHOCYTES ABSOLUTE 0.41 10/3/uL (0.67-4.30); MEAN CORPUS HGB CONC 33.7 g/dL (32.0-36.0); MEAN CORPUSCULAR HEMOGLOB 29.3 pg (26.0-34.0); MEAN CORPUSCULAR VOLUME 87.1 fL (80-100); MEAN PLATELET VOLUME 9.4 fL (9.2-13.0); MONOCYTES 3.7 %; NEUTROPHILS 90.6 %; NEUTROPHILS ABSOLUTE 7.34 10/3/uL (2.02-8.40); PLATELET COUNT 205 10/3/uL (150-400); RBC DISTRIBUTION WIDTH 16.9 % (12.0-16.0); RED CELL COUNT 3.41 10/6/uL (4.7-6.1)
[2017-01-10 06:02] LABS: MANUAL DIFF NO %; WHITE BLOOD CELLS 8.1 10/3/uL (4.5-10.5)
[2017-01-10 06:32] LABS: ANISOCYTOSIS 1+ (5-10/OIF) (0-5/OIF); PLATELET ESTIMATE ADQ (ADEQUATE)
[2017-01-11 06:01] LABS: BUN (BLOOD UREA NITROGEN) 24 MG/DL (6-23); CALCIUM, SERUM 8.6 MG/DL (8.5-10.4); CHLORIDE, SERUM 105 MMOL/L (96-112); CO2 (CARBON DIOXIDE) 25 MMOL/L (24-34); CREATININE 1.07 MG/DL (0.70-1.30); GFR AFRICAN AMERICAN 71 ML/MIN (>=60); GFR NON AFRICAN AMERICAN 62 ML/MIN (>=60); SODIUM, SERUM 139 MMOL/L (135-148)
[2017-01-11 06:03] LABS: BASOPHILS 0.1 %; BASOPHILS ABSOLUTE 0.01 10/3/uL (0.0-0.16); EOSINOPHILS 0 %; HEMATOCRIT 28.3 % (40.0-51.0); HEMOGLOBIN 9.7 g/dL (13.6-17.8); IMMATURE GRANULOCYTES 0.7 %; IMMATURE GRANULOCYTES ABSOLUTE 0.07 10/3/uL (0.0-0.11); LYMPHOCYTES 7.5 %; LYMPHOCYTES ABSOLUTE 0.76 10/3/uL (0.67-4.30); MEAN CORPUS HGB CONC 34.3 g/dL (32.0-36.0); MEAN CORPUSCULAR HEMOGLOB 30.3 pg (26.0-34.0); MEAN CORPUSCULAR VOLUME 88.4 fL (80-100); MEAN PLATELET VOLUME 8.9 fL (9.2-13.0); MONOCYTES ABSOLUTE 0.82 10/3/uL (0.21-1.20); NEUTROPHILS 83.7 %; NEUTROPHILS ABSOLUTE 8.53 10/3/uL (2.02-8.40); PLATELET COUNT 206 10/3/uL (150-400); RBC DISTRIBUTION WIDTH 16.8 % (12.0-16.0); WHITE BLOOD CELLS 10.2 10/3/uL (4.5-10.5)
[2017-01-11 06:04] LABS: MANUAL DIFF NO %
[2017-01-11 06:05] LABS: GLUCOSE, SERUM 195 MG/DL (60-99)
[2017-01-12 06:36] LABS: BASOPHILS 0.1 %; BASOPHILS ABSOLUTE 0.01 10/3/uL (0.0-0.16); EOSINOPHILS 0 %; HEMATOCRIT 31.4 % (40.0-51.0); HEMOGLOBIN 10.4 g/dL (13.6-17.8); IMMATURE GRANULOCYTES 0.7 %; IMMATURE GRANULOCYTES ABSOLUTE 0.05 10/3/uL (0.0-0.11); LYMPHOCYTES 7.9 %; LYMPHOCYTES ABSOLUTE 0.58 10/3/uL (0.67-4.30); MANUAL DIFF NO %; MEAN CORPUS HGB CONC 33.1 g/dL (32.0-36.0); MEAN CORPUSCULAR HEMOGLOB 29.6 pg (26.0-34.0); MEAN CORPUSCULAR VOLUME 89.5 fL (80-100); MONOCYTES 9.4 %; MONOCYTES ABSOLUTE 0.69 10/3/uL (0.21-1.20); NEUTROPHILS 81.9 %; PLATELET COUNT 193 10/3/uL (150-400); RBC DISTRIBUTION WIDTH 16.3 % (12.0-16.0); RED CELL COUNT 3.51 10/6/uL (4.7-6.1); WHITE BLOOD CELLS 7.3 10/3/uL (4.5-10.5)
[2017-01-12 06:47] LABS: BUN (BLOOD UREA NITROGEN) 22 MG/DL (6-23); CALCIUM, SERUM 8.8 MG/DL (8.5-10.4); CHLORIDE, SERUM 102 MMOL/L (96-112); CO2 (CARBON DIOXIDE) 32 MMOL/L (24-34); CREATININE 0.99 MG/DL (0.70-1.30); GFR AFRICAN AMERICAN 78 ML/MIN (>=60); GFR NON AFRICAN AMERICAN 68 ML/MIN (>=60); POTASSIUM, SERUM 3.8 MMOL/L (3.5-5.3); SODIUM, SERUM 138 MMOL/L (135-148)
[2017-01-12 06:48] LABS: GLUCOSE, SERUM 105 MG/DL (60-99)
[2017-01-13 06:59] LABS: HEMOGLOBIN 10.5 g/dL (13.6-17.8); MEAN CORPUS HGB CONC 32.8 g/dL (32.0-36.0); MEAN CORPUSCULAR HEMOGLOB 29.4 pg (26.0-34.0); MEAN CORPUSCULAR VOLUME 89.6 fL (80-100); MEAN PLATELET VOLUME 10.4 fL (9.2-13.0); PLATELET COUNT 205 10/3/uL (150-400); RBC DISTRIBUTION WIDTH 16.3 % (12.0-16.0); RED CELL COUNT 3.57 10/6/uL (4.7-6.1); WHITE BLOOD CELLS 7.8 10/3/uL (4.5-10.5)
[2017-01-13 07:05] LABS: MANUAL DIFF YES %
[2017-01-13 07:31] LABS: BAND NEUTROPHILS 1 %; IMMATURE GRANS ABSOLUTE (CALC) 0.16 10/3/uL (0.0-0.11); LYMPHOCYTES 6 %; LYMPHOCYTES ABSOLUTE (CALC) 0.47 10/3/uL (0.67-4.30); METAMYELOCYTES 2 %; MONOCYTES 2 %; MONOCYTES ABSOLUTE (CALC) 0.16 10/3/uL (0.21-1.20); NEUTROPHILS ABSOLUTE (CALC) 7.02 10/3/uL (2.02-8.40); PLATELET ESTIMATE ADQ (ADEQUATE); SEGMENTED NEUTROPHIL (0) 89 %; TOTAL NUCLEATED CELLS 100
[2017-01-13 07:32] LABS: POLYCHROMASIA 1+ (2-5/OIF) (0-1/OIF); TOXIC GRANULATION 1+
[2017-01-13 08:01] LABS: BUN (BLOOD UREA NITROGEN) 20 MG/DL (6-23); CALCIUM, SERUM 8.8 MG/DL (8.5-10.4); CHLORIDE, SERUM 101 MMOL/L (96-112); CO2 (CARBON DIOXIDE) 29 MMOL/L (24-34); CREATININE 0.86 MG/DL (0.70-1.30); GFR AFRICAN AMERICAN 90 ML/MIN (>=60); GFR NON AFRICAN AMERICAN 77 ML/MIN (>=60); POTASSIUM, SERUM 4.1 MMOL/L (3.5-5.3); SODIUM, SERUM 136 MMOL/L (135-148)
[2017-01-13 08:02] LABS: GLUCOSE, SERUM 178 MG/DL (60-99)
[2017-01-14 05:17] LABS: HEMOGLOBIN 11.7 g/dL (13.6-17.8); MEAN CORPUS HGB CONC 33.4 g/dL (32.0-36.0); MEAN CORPUSCULAR HEMOGLOB 30.4 pg (26.0-34.0); MEAN CORPUSCULAR VOLUME 90.9 fL (80-100); MEAN PLATELET VOLUME 10.3 fL (9.2-13.0); PLATELET COUNT 210 10/3/uL (150-400); RBC DISTRIBUTION WIDTH 16.4 % (12.0-16.0); RED CELL COUNT 3.85 10/6/uL (4.7-6.1); WHITE BLOOD CELLS 9.5 10/3/uL (4.5-10.5)
[2017-01-14 05:23] LABS: MANUAL DIFF YES %
[2017-01-14 05:40] LABS: BUN (BLOOD UREA NITROGEN) 19 MG/DL (6-23); CALCIUM, SERUM 8.7 MG/DL (8.5-10.4); CHLORIDE, SERUM 102 MMOL/L (96-112); CO2 (CARBON DIOXIDE) 29 MMOL/L (24-34); CREATININE 0.98 MG/DL (0.70-1.30); GFR AFRICAN AMERICAN 79 ML/MIN (>=60); GFR NON AFRICAN AMERICAN 69 ML/MIN (>=60); POTASSIUM, SERUM 3.7 MMOL/L (3.5-5.3); SODIUM, SERUM 137 MMOL/L (135-148)
[2017-01-14 05:43] LABS: GLUCOSE, SERUM 133 MG/DL (60-99)
[2017-01-14 06:19] LABS: LYMPHOCYTES 3 %; LYMPHOCYTES ABSOLUTE (CALC) 0.29 10/3/uL (0.67-4.30); METAMYELOCYTES 1 %; MONOCYTES 3 %; MONOCYTES ABSOLUTE (CALC) 0.29 10/3/uL (0.21-1.20); NEUTROPHILS ABSOLUTE (CALC) 8.84 10/3/uL (2.02-8.40); SEGMENTED NEUTROPHIL (0) 93 %; TOTAL NUCLEATED CELLS 100
[2017-01-14 06:20] LABS: PLATELET ESTIMATE ADQ (ADEQUATE); TEARDROP SHAPED RBCS OCC (0-2/OIF)
[2017-01-15 02:07] LABS: BASOPHILS 0.1 %; BASOPHILS ABSOLUTE 0.01 10/3/uL (0.0-0.16); EOSINOPHILS 2.8 %; EOSINOPHILS ABSOLUTE 0.23 10/3/uL (0.0-0.53); HEMATOCRIT 34.6 % (40.0-51.0); HEMOGLOBIN 11.4 g/dL (13.6-17.8); IMMATURE GRANULOCYTES 0.4 %; IMMATURE GRANULOCYTES ABSOLUTE 0.03 10/3/uL (0.0-0.11); LYMPHOCYTES 9.7 %; LYMPHOCYTES ABSOLUTE 0.81 10/3/uL (0.67-4.30); MEAN CORPUS HGB CONC 32.9 g/dL (32.0-36.0); MEAN CORPUSCULAR HEMOGLOB 30.1 pg (26.0-34.0); MEAN CORPUSCULAR VOLUME 91.3 fL (80-100); MEAN PLATELET VOLUME 9.3 fL (9.2-13.0); MONOCYTES 7.5 %; MONOCYTES ABSOLUTE 0.63 10/3/uL (0.21-1.20); NEUTROPHILS 79.5 %; NEUTROPHILS ABSOLUTE 6.65 10/3/uL (2.02-8.40); PLATELET COUNT 169 10/3/uL (150-400); RBC DISTRIBUTION WIDTH 16.1 % (12.0-16.0); RED CELL COUNT 3.79 10/6/uL (4.7-6.1); WHITE BLOOD CELLS 8.4 10/3/uL (4.5-10.5)
[2017-01-15 02:10] LABS: MANUAL DIFF NO %
[2017-01-15 02:21] LABS: BUN (BLOOD UREA NITROGEN) 21 MG/DL (6-23); CALCIUM, SERUM 8.6 MG/DL (8.5-10.4); CHLORIDE, SERUM 102 MMOL/L (96-112); CO2 (CARBON DIOXIDE) 32 MMOL/L (24-34); CREATININE 1.02 MG/DL (0.70-1.30); GFR AFRICAN AMERICAN 76 ML/MIN (>=60); GFR NON AFRICAN AMERICAN 65 ML/MIN (>=60); POTASSIUM, SERUM 3.9 MMOL/L (3.5-5.3); SODIUM, SERUM 141 MMOL/L (135-148); VANCOMYCIN TROUGH 15.1 MCG/ML (10.0-20.0)
[2017-01-15 02:22] LABS: GLUCOSE, SERUM 181 MG/DL (60-99)
[2017-04-06] MEDS ORDERED: CRESTOR20 MG PO (21:01)
[2017-04-06] MEDS ORDERED: PREV15 PO (21:01)
[2017-04-06] MEDS ORDERED: CENTRUM PO (21:02)
[2017-04-06] MEDS ORDERED: CYMBALTA60 PO (21:02)
[2017-04-06] MEDS ORDERED: ALTA2.5 PO (21:02)
[2017-04-06] MEDS ORDERED: LANTUS SC (21:02)
[2017-04-06] MEDS ORDERED: NAMENDA10 MG PO (21:02)
[2017-04-06] MEDS ORDERED: HUMALOG SC (21:02)
[2017-04-06] MEDS ORDERED: SIN25 PO (21:03)
[2017-04-06] MEDS ORDERED: CARTIA XT240 MG/24 PO (21:03)
[2017-04-06] MEDS ORDERED: DUONEB INH (21:03)
[2017-04-06] MEDS ORDERED: L20 PO ×2 (21:03→21:04)
[2017-04-06] MEDS ORDERED: KDUR10 PO ×2 (21:04→21:05)
[2017-04-06] MEDS ORDERED: VITAMIN D400 UNI1 PO (21:05)
[2017-04-06] MEDS ORDERED: CEFT5 PO (21:05)
[2017-04-06] MEDS ORDERED: ASAB PO (21:05)
[2017-04-20] MEDS ORDERED: ASAB PO (00:02)
[2017-04-20] MEDS ORDERED: DUONEB INH (00:02)
[2017-04-20] MEDS ORDERED: SIN25 PO (00:02)
[2017-04-20] MEDS ORDERED: CARTIA XT240 MG/24 PO (00:03)
[2017-04-20] MEDS ORDERED: LANTUS SC (00:03)
[2017-04-20] MEDS ORDERED: HUMALOG SC (00:03)
[2017-04-20] MEDS ORDERED: CYMBALTA60 PO (00:03)
[2017-04-20] MEDS ORDERED: MONODOX100 MG PO (00:04)
[2017-04-20] MEDS ORDERED: FERROUS SULF325 M1 PO (00:05)
[2017-04-20] MEDS ORDERED: CRESTOR20 MG PO (00:05)
[2017-04-20] MEDS ORDERED: MAXIMUM D3 PO (00:05)
[2017-04-20] MEDS ORDERED: KLOR-CON 1010 MEQ PO (00:05)
[2017-04-20] MEDS ORDERED: MULTIVIT/MIN PO (00:05)
[2017-04-20] MEDS ORDERED: SYN.05 PO (00:05)
[2017-04-20] MEDS ORDERED: NAMENDA10 MG PO (00:06)
[2017-04-20] MEDS ORDERED: L20 PO (00:06)
[2017-04-20] MEDS ORDERED: PREV15 PO (00:06)
== END 2017-01-21 17:46 | disposition home health service (06) | DRG 871 ==
LOC: ER 21:57 → 2SO 22:58
PROVIDERS: Hospitalist; Internal Medicine; Nurse Practitioner Acute Care
DX: A41.9 Sepsis, unspecified organism (principal); J69.0 Pneumonitis due to inhalation of food and vomit; G93.40 Encephalopathy, unspecified; J90 Pleural effusion, not elsewhere classified; J96.11 Chronic respiratory failure with hypoxia; E11.42 Type 2 diabetes mellitus with diabetic polyneuropathy; C34.11 Malignant neoplasm of upper lobe, right bronchus or lung; E11.65 Type 2 diabetes mellitus with hyperglycemia; I48.0 Paroxysmal atrial fibrillation; I10 Essential (primary) hypertension; G72.9 Myopathy, unspecified; E88.09 Other disorders of plasma-protein metabolism, not elsewhere classified; G20 Parkinson's disease; R65.20 Severe sepsis without septic shock; R13.12 Dysphagia, oropharyngeal phase; Y95 Nosocomial condition; J44.9 Chronic obstructive pulmonary disease, unspecified; Z51.5 Encounter for palliative care; F02.80 Dementia in other diseases classified elsewhere, unspecified severity, without behavioral disturbance, psychotic disturbance, mood disturbance, and anxiety; I25.10 Atherosclerotic heart disease of native coronary artery without angina pectoris; F41.9 Anxiety disorder, unspecified; D63.8 Anemia in other chronic diseases classified elsewhere; B19.20 Unspecified viral hepatitis C without hepatic coma; N47.1 Phimosis; Z66 Do not resuscitate; I45.10 Unspecified right bundle-branch block; M19.90 Unspecified osteoarthritis, unspecified site; H91.90 Unspecified hearing loss, unspecified ear; Z83.3 Family history of diabetes mellitus; Z95.1 Presence of aortocoronary bypass graft; Z98.890 Other specified postprocedural states; Z88.8 Allergy status to other drugs, medicaments and biological substances; Z87.891 Personal history of nicotine dependence
CPT/HCPCS: 36415; 36600; 71010; 71250; 74230; 80048; 80053; 80202; 81001; 82962; 83036; 83605; 83735; 83880; 84145; 84443; 84484; 85025; 85610; 86850; 86900; 86901; 86920; 87086; 87449; 92526-GN; 92610-GN; 92611-GN; 93005; 94640; 96374; 97110-GP; 97116-GP; 97162-GP; 97530-GP; 99291; A9270-GY; G8978-CL-GP; G8979-CK-GP; G8996-CK-GN; G8996-CN-GN; G8997-CK-GN; G8997-CN-GN; G8998-CN-GN; J0692; J1940; J2920; J3370; P9016; P9047

== ENCOUNTER 2017-02-05 11:43 | Inpatient (IN) | payer MEDICARE, OTHER ==
--- NOTE | ~2017-02-05 | DS ---
Discharge Summary [facility] [address] [place]. [address] NAME: HAVEN SHANKS : [birth year] STATUS : DIS IN PAT#: [id number] AGE: 86 ADM/REG DATE : 02/05/17 MR#: [id number] REPORT SERV DATE: 02/10/17 DICTATED BY: TONY SPRINGER DATE: 02/09/17 REPORT STATUS : Draft TRANSCRIBED BY: MODL DATE: 02/09/17 ADMISSION DATE: 02/05/2017 DISCHARGE DATE: 02/09/2017 CONSULTANTS: Dr. Guera Stovall, GI. DISCHARGE DIAGNOSES: 1. Recurrent aspiration pneumonitis. 2. Acute on chronic anemia. 3. Possible gastrointestinal bleed. 4. Oxygen-dependent chronic obstructive pulmonary disease. 5. Bilateral lung nodules. 6. Hypertension. 7. Paroxysmal atrial fibrillation. 8. Diabetes mellitus type 2 with A1c of 5.7%. 9. Previous pancreatitis. 10.Previous Clostridium difficile by history. 11.Parkinson disease with dementia. 12.Hard of hearing. HISTORY: Since November of this year, this gentleman has been hospitalized twice. In November, he had bilateral aspiration pneumonitis with acute on chronic hypoxic respiratory failure. In early January of this year, he had recurrent aspiration. The patient earlier this year had gone to [facility] and then to [facility] and was finally back home, but was very weak and needed family to assist him and he could stand maybe 20-30 seconds in pivot and get into the wheelchair. He is on home oxygen. He was brought into the ER at [facility] this admission for increasing cough and congestion and more shortness of breath than his usual baseline. He also was noted to have a lower hemoglobin of 7.9 compared to 11.4 on 01/15/2017 with the report of guaiac- positive stool in the emergency room. Because of this, he was referred to our team for inpatient care. He was placed on Protonix 40 mg IV. He had orders for transfusion and received 1 unit of packed red cells and his hemoglobin came up to 9.1, then 10.2, and stabilized around 9.5. He was seen by GI, Dr. Guera Stovall. She indicated that she felt that the patient was not a good candidate for endoscopic evaluation, unless, he had much more severe active bleeding going on. I did agree with her about this as well. Our admitting partner was concerned he might have an aspiration pneumonia and started him on broad-spectrum antibiotics with Zosyn. Chest x-ray showed possible vascular congestion versus infiltrates and also pleural effusion on the left that was thought to be small. Arterial blood gas done on 32% oxygen, pH 7.49, pCO2 31, PO2 77, bicarbonate 23.2. Procalcitonin was undetectable at less than 0.05. His white count was normal throughout the entire time here in the hospital. Blood cultures x2, no growth. The patient rapidly improved without fever and less congestion. I stopped his antibiotics as I felt he had Discharge Summary [facility] [address] [place]. [address] NAME: HAVEN SHANKS : [birth year] STATUS : DIS IN PAT#: [id number] AGE: 86 ADM/REG DATE : 02/05/17 MR#: [id number] REPORT SERV DATE: 02/10/17 DICTATED BY: TONY SPRINGER DATE: 02/09/17 REPORT STATUS : Draft TRANSCRIBED BY: MONICO DATE: 02/09/17 aspiration pneumonitis. We had Speech Therapy see him. They indicated that he still needed to be on a mechanical soft diet, chopped meats with gravy, nectar thick liquids, and chin tuck with each swallow. I spoke with his son-in-law, Moises Pineda, who is very much involved in his care at home. He indicated the family was not having the patient do the chin tuck with each swallow, they were just trying to give him small size bites. I stressed the importance of this need for the patient. The patient's respiratory status has steadily improved while he is here. He is still on oxygen, like he wears at home. We have elected not to pursue endoscopy because his hemoglobins were stable with minimal evidence for bleeding. We are just going to keep him on Protonix once a day. Family indicated that by the patient's own choice he was DNR and do not intubate. He has [facility] and [employer] for home oxygen. He is calm. He is alert. He is fairly quiet. He has Parkinson's with tremor at rest. He has a history of dementia. He is not on any anticoagulation for his history of paroxysmal atrial fibrillation because of the concern about GI bleeds. DISCHARGE MEDICATIONS: Sinemet 25/100 one p.o. t.i.d.; Cardizem CD daily, hold if pulse less than 70 or systolic less than 110; Cymbalta 60 mg daily; Lantus 15 units subcu each bedtime (his A1c is 5.7%); Humalog sliding scale; Namenda 10 mg twice a day; Protonix 40 mg daily (or a therapeutic substitution based on his formulary by Medicare Part D); Altace 2.5 mg daily (creatinine 1.21); Tylenol 650 q.4 hours p.r.n. pain or fever; glucose tablets p.r.n. hypoglycemia; aspirin 81 mg daily; DuoNeb inhaled q.4 hours p.r.n. shortness of breath; multivitamin once a day; Crestor 20 mg daily; zinc oxide cream applied to skin as needed. The patient's long-term prognosis is quite poor given his age and his tendency to aspirate and his forgetfulness and he does not therefore remember to tuck his chin each time he swallows. His family appears to be quite attentive to his care. I spent 38 minutes today with the patient and his discharge plan. DICTATED BY: Tejinder Corral/MONICO Tony Springer M.D. / [id number] CC: Discharge Summary [address] [address] NAME: HAVEN SHANKS : [birth year] STATUS : DIS IN PAT#: [id number] AGE: 86 ADM/REG DATE : 02/05/17 MR#: [id number] REPORT SERV DATE: 02/10/17 DICTATED BY: TONY SPRINGER DATE: 02/09/17 REPORT STATUS : Draft TRANSCRIBED BY: MODShane DATE: 02/09/17 Tejinder Corral D.O. William Warren, M.D. Daniel Smith, M.D.
--- NOTE | ~2017-02-05 | HP ---
History And Physical [facility] [address] [place]. [address] NAME: HAVEN SHANKS : [birth year] STATUS : ADM IN [facility]#: [id number] AGE: 86 ADM/REG DATE : 02/05/17 MR#: [id number] REPORT SERV DATE: 02/05/17 DICTATED BY: PERI MILLER DATE: 02/05/17 REPORT STATUS : Draft TRANSCRIBED BY: MODL DATE: 02/05/17 DATE OF ADMISSION: 02/05/2017 CHIEF COMPLAINT: Progressive weakness, cough, possible aspiration. HISTORY OF PRESENT ILLNESS: This is a very pleasant 86 years old gentleman. He does have an extensive past medical history significant for dysphagia with recurrent aspiration pneumonia; bilateral pulmonary nodules/masses that have been followed as an outpatient by Dr. Fleming, his men's swim coach; history of loculated pleural effusion seen in the past by CT Surgery, chronic loculated, no prior indication for biopsy or surgery; history of paroxysmal atrial fibrillation; history of anemia of chronic kidney disease with prior GI bleed; history of COPD, on oxygen at home; history of diabetes; history of Parkinson's; and dementia, who has been presenting today to [facility] accompanied by his son-in-law, Edwin Collazo, with progressive weakness and some cough with possible aspiration. The patient is very hard of hearing, so part of the history has been taken by his son-in-law. According to him, the patient did have some progressive weakness and intermittent cough, although he is on a modified diet and he became much more weak to the point that he has been brought to [facility]. He has not been confused or more lethargic than usual, but he did have more weakness and cough, which has been nonproductive and increasing shortness of breath. No chest pain. No abdominal pain. No nausea or vomiting. No diarrhea. No fever or chills. The patient has been evaluated in the emergency room and after initial evaluation, Hospitalist Service has been asked for admission, further evaluation, and treatment. PAST MEDICAL HISTORY: Recurrent aspiration pneumonia; dysphagia; history of coronary artery disease, status post CABG; paroxysmal atrial fibrillation; COPD; hypertension; dementia; Parkinson's disease; hepatitis C; C diff colitis; left loculated pleural effusion; bilateral pulmonary nodules, not biopsied, just followed as an outpatient by Dr. Solomon Fleming; anemia of chronic disease, he had hematocrit between 23-24 to 31 in the past; history of GERD; chronic kidney disease; diabetes; history of peripheral neuropathy; and urinary tract infections. PAST SURGICAL HISTORY: Includes CABG, left hand surgery, and bilateral knee surgeries. ALLERGIES: HE IS ALLERGIC TO AMBIEN AND ARICEPT. HE IS A DNR. SOCIAL HISTORY: He is not a smoker, quit in 2004. No alcohol. No IV drugs. He has a daughter and two grandsons. FAMILY HISTORY: Significant for diabetes. MEDICATIONS: Listed as his home medication include albuterol, aspirin, Sinemet, Cardizem, Cymbalta, Lantus, Humalog, Namenda, multivitamin, Ramipril, Crestor, and zinc oxide cream. REVIEW OF SYSTEMS: History And Physical [address] [address] NAME: HAVEN SHANKS : [birth year] STATUS : ADM IN [facility]#: [id number] AGE: 86 ADM/REG DATE : 02/05/17 MR#: [id number] REPORT SERV DATE: 02/05/17 DICTATED BY: PERI MILLER DATE: 02/05/17 REPORT STATUS : Draft TRANSCRIBED BY: MONICO DATE: 02/05/17 A 14-point review of systems has been obtained and pertinent positive has been listed into the history of present illness. Otherwise, negative except those underlying above. PHYSICAL EXAMINATION: VITAL SIGNS: Currently, the patient is afebrile, blood pressure 135/63, heart rate 103, respiratory rate 34, saturating 94% on 3 L of oxygen. GENERAL: Chronically ill-appearing gentleman, in no acute distress. He is very hard of hearing. He is alert and oriented to location and himself, but not to time. He follows commands appropriately. HEENT: Shows pupils equal, round, reactive to light. Extraocular movements intact. No JVD. No lymphadenopathy. No thyromegaly appreciated. CHEST: Eval shows bilateral air entry. Decreased breath sounds on the left. Scattered rhonchi and a few wheezes. CARDIOVASCULAR: Regular rate and rhythm. Slightly tachycardic. S1, S2 positive. No S3, no S4. No murmurs, rubs, or gallops appreciated. ABDOMEN: Soft with positive bowel sounds. Nontender. No guarding. No rebound. EXTREMITIES: No clubbing, cyanosis, or edema. NEUROLOGIC: He is alert and oriented x2. He is extremely hard of hearing, but he does follow commands appropriately. LABORATORY DATA: Labs from today include sodium 143, potassium 4.5, chloride 109, CO2 of 29, BUN 15, creatinine 0.80, glucose 131, troponin I 0.02. His BNP was 175.9. His white count is 5.9, hemoglobin 7.9, hematocrit 24.7, and platelets 210. His INR is 1.2. His chest x- ray, only portable, performed in the emergency room has shown symmetric infiltrates and left pleural effusion, no significant improvement comparative with prior chest x-ray. ASSESSMENT AND PLAN: This is an 86 years old gentleman with: 1. Possible recurrent aspiration pneumonia. 2. Anemia with guaiac-positive stools with history of anemia of chronic disease and prior history of gastrointestinal bleed. 3. Mild chronic obstructive pulmonary disease exacerbation with chronic respiratory failure. 4. Parkinson's disease. 5. History of paroxysmal atrial fibrillation, not a candidate for anticoagulation. 6. Bilateral pulmonary nodules. 7. Left pleural effusion, loculated. 8. Diabetes type 2, insulin dependent. 9. Weakness and debility. 10.Dementia. PLAN: 1. The patient is going to be admitted to monitored bed. We are going to place him on oxygen. We are going to place him on broad-spectrum antibiotics with Zosyn. Check blood cultures. Check procalcitonin level. Check a CT of the chest without contrast in the morning to better evaluate his pulmonary nodule as well as loculated pleural effusion. According to prior hospitalization, the patient has not been a good candidate for biopsy and treatment due to the underlying medical condition, nebulizer History And Physical [address] [address] NAME: HAVEN SHANKS : [birth year] STATUS : ADM IN [facility]#: [id number] AGE: 86 ADM/REG DATE : 02/05/17 MR#: [id number] REPORT SERV DATE: 02/05/17 DICTATED BY: PERI MILLER DATE: 02/05/17 REPORT STATUS : Draft TRANSCRIBED BY: MODL DATE: 02/05/17 treatments, so we are going to place him on steroids with rapid tapering. 2. Anemia with guaiac-positive stools in a patient with a history of anemia of chronic disease and also prior history of GI bleed. We are going to place him on Protonix IV b.i.d. We are going to transfuse him. H and H q.6 hours. Protonix IV b.i.d. and consult Dr. Spence from GI Service for further recommendation. Also, check all anemia studies and hold his aspirin for right now. 3. History of paroxysmal atrial fibrillation. We are going to continue his Cardizem and check one set of cardiac enzymes. 4. Dysphagia with recurrent aspiration. We are going to continue his modified diet and reconsult Speech and Swallow Pathology for further recommendation. 5. Diabetes type 2, insulin dependent. Continue Lantus at bedtime. Accu-Cheks q.a.c. and q.h.s. Sliding scale insulin subcutaneously level 2. 6. Dementia. We are going to continue his home medications. We are going to provide reasonable pain and nausea control as well as GI and DVT prophylaxis with SCDs. The patient is do not resuscitate according to patient wishes well stated. This has been discussed extensively with the patient's family. All the questions have been answered in full. Further workup and recommendation pending above. It is worthwhile to note that the patient is going to be followed up by Hospitalist Service. CF/MODL Peri Miller M.D. / [id number] CC: Tejinder Corral D.O.
--- NOTE | ~2017-02-05 | CN ---
Consultation Report [facility] [address] [place]. [address] NAME: HAVEN HUBER : [birth year] STATUS : ADM IN [facility]#: [id number] AGE: 86 ADM/REG DATE : 02/05/17 MR#: [id number] REPORT SERV DATE: 02/07/17 DICTATED BY: BRITT STOVALL DATE: 02/06/17 REPORT STATUS : Draft TRANSCRIBED BY: MODL DATE: 02/06/17 GI CONSULTATION. DATE OF CONSULTATION: 02/06/2017 REASON FOR CONSULTATION: Anemia, drop in hemoglobin and hematocrit. HISTORY OF PRESENT ILLNESS: Mr. Huber is an 86-year-old gentleman with a history of Parkinson disease, dementia, dysphagia, who presented to [facility] with increased weakness, cough, and possible aspiration pneumonia. He has been seen by speech pathology and has had modified barium swallow performed. GI was consulted because of a drop in his hemoglobin and hematocrit. He received a unit of blood and is now up to 10.2 and 30.5. During his hospitalization, although he was found to be heme-positive in the emergency room, he has had no overt signs of bleeding, neither while he has been in the hospital nor at home when discussing with the family. No melena. No hematochezia or rectal bleeding. No coffee ground or hematemesis. PAST MEDICAL HISTORY: Parkinson disease, anemia of chronic disease with a baseline hematocrit of 23-31, coronary artery disease status post CABG, diabetes, COPD, paroxysmal atrial fibrillation, history of aspiration pneumonia, history of C. difficile, history of hepatitis C. PAST SURGICAL HISTORY: Coronary artery bypass grafting, left hand surgery, bilateral knee surgery. SOCIAL HISTORY: The patient is a DNR. No alcohol or drug use. Quit smoking tobacco in 2004. FAMILY HISTORY: Diabetes. MEDICATIONS AND ALLERGIES: Reviewed. PHYSICAL EXAMINATION: VITAL SIGNS: The patient is afebrile. His vital signs have been stable. GENERAL: The patient is sleeping, but arousable and is able to nod his head and answer truthfully, but is not able to provide any significant history and sometimes does not completely answer appropriately. HEENT: Atraumatic, normocephalic. Anicteric. Mucous membranes moist. CARDIAC: S1, S2. CHEST: Clear, but not able to take deep inspiratory or expiratory effort. ABDOMEN: Soft, nontender. Bowel sounds normoactive. LABORATORY DATA: Showed WBC 5.4, hemoglobin 10.2, hematocrit 30.5, platelets 184, MCV is 91.1. INR is 1.2. Sodium 142, potassium 4.5, chloride 108, bicarbonate 27, BUN 16, creatinine 0.92, glucose 197. Iron is low at 28. Iron saturation is also low at 18 and Consultation Report [address] [place]. [address] NAME: HAVEN HUBER : [birth year] STATUS : ADM IN PAT#: [id number] AGE: 86 ADM/REG DATE : 02/05/17 MR#: [id number] REPORT SERV DATE: 02/07/17 DICTATED BY: BRITT STOVALL DATE: 02/06/17 REPORT STATUS : Draft TRANSCRIBED BY: MONICO DATE: 02/06/17 TIBC is low at 234. IMPRESSION AND PLAN: Drop in hemoglobin and hematocrit and heme-positive stool, but no overt bleeding, such as melena or hematochezia. The patient denies any gastrointestinal symptoms, although his history is questionable. At this time, the patient does not seem to be a good candidate for endoscopic evaluation as risks outweigh benefits as there is no overt bleeding or active bleeding. Unless this changes, would defer endoscopy. Continue PPI and supportive care. Monitor for any overt bleeding. I left a message with his daughter, Evangelina Pineda to discuss and contact me if there are any questions. CAM/MONICO Britt Stovall MD / [id number] CC: Rolando Springer M.D. Esteban Caro D.O.
[~2017-02-05 11:43] MED LIST changes: +8 HOUR650 MG PO; +ACIDOPHILU2 PO; +BROVANA15 MCG INH; +CARDCD120 PO; +CENTRUM PO; +DSS PO; +DUONEB INH; +FERROUS SULF325 M1 PO; +HUMALOG SC; +LIPITOR40 PO; +MIRALAX POWDER1 PKT PO; +OMEGA PO; +PROTONIX PO; +PULRESP.5 INH; +SIN25 PO; +VITAMIN D31000 UNIT PO
[2017-02-05 12:57] LABS: BE (BASE EXCESS) 0.8 MEQ/L (0 +/- 2.5); HCO3 (ACTUAL BICARBONATE) 23.2 MEQ/L (23-27); INSTRUMENT SERIAL # 8087; PCO2 (CO2 TENSION) 31 MMHG (35-45); PO2 (O2 TENSION) 77 MMHG (79-93); pH 7.49 (7.37-7.43)
[2017-02-05 12:58] LABS: DEVICE NC; OPERATOR ID 18801; SAMPLE Arterial
[2017-02-05 13:07] LABS: BASOPHILS 0.3 %; BASOPHILS ABSOLUTE 0.02 10/3/uL (0.0-0.16); EOSINOPHILS ABSOLUTE 0.06 10/3/uL (0.0-0.53); ER CBC TAT 0 Hrs 08 Mins; IMMATURE GRANULOCYTES 0.3 %; IMMATURE GRANULOCYTES ABSOLUTE 0.02 10/3/uL (0.0-0.11); LYMPHOCYTES 14.5 %; LYMPHOCYTES ABSOLUTE 0.86 10/3/uL (0.67-4.30); MEAN CORPUSCULAR HEMOGLOB 29.2 pg (26.0-34.0); MEAN CORPUSCULAR VOLUME 91.1 fL (80-100); MEAN PLATELET VOLUME 8.1 fL (9.2-13.0); MONOCYTES 7.1 %; MONOCYTES ABSOLUTE 0.42 10/3/uL (0.21-1.20); NEUTROPHILS 76.8 %; NEUTROPHILS ABSOLUTE 4.54 10/3/uL (2.02-8.40); PLATELET COUNT 210 10/3/uL (150-400); WHITE BLOOD CELLS 5.9 10/3/uL (4.5-10.5)
[2017-02-05 13:08] LABS: HEMATOCRIT 24.7 % (40.0-51.0); HEMOGLOBIN 7.9 g/dL (13.6-17.8); MANUAL DIFF NO %; RED CELL COUNT 2.71 10/6/uL (4.7-6.1)
[2017-02-05 13:14] LABS: INTERNATIONAL NORMAL RATI 1.2 UNITS (-); PARTIAL THROMBO TIME 43.3 SEC (22.5-37.2); PROTIME (NOT ORD) 15.3 SEC (12.0-14.5)
[2017-02-05 13:23] LABS: ALKALINE PHOSPHATASE 95 U/L (45-117); BUN (BLOOD UREA NITROGEN) 15 MG/DL (6-23); CALCIUM, SERUM 8.2 MG/DL (8.5-10.4); CHEST PAIN PROFILE TAT 0 Hrs 24 Mins; CHLORIDE, SERUM 109 MMOL/L (96-112); CO2 (CARBON DIOXIDE) 29 MMOL/L (24-34); DIRECT BILIRUBIN 0.2 MG/DL (0.0-0.4); GFR AFRICAN AMERICAN 92 ML/MIN (>=60); GFR NON AFRICAN AMERICAN 80 ML/MIN (>=60); GLUCOSE, SERUM 131 MG/DL (60-99); INDIRECT BILIRUBIN(NOT ORDER) 0.5 MG/DL (0.1-0.9); POTASSIUM, SERUM 4.4 MMOL/L (3.5-5.3); SGOT(AST) 19 U/L (5-40); SGPT(ALT) 13 U/L (5-65); SODIUM, SERUM 143 MMOL/L (135-148); TOTAL BILIRUBIN 0.7 MG/DL (0-1.2); TOTAL PROTEIN 5.8 G/DL (6.0-8.5); TROPONIN I 0.02 NG/ML (<0.05)
[2017-02-05] MEDS ORDERED: LANTUS SC (14:37)
[2017-02-05] MEDS ORDERED: ALTA2.5 PO (14:38)
[2017-02-05] MEDS ORDERED: CRESTOR20 MG PO (14:39)
[2017-02-05] MEDS ORDERED: DESITIN TOP (14:42)
[2017-02-05 21:21] LABS: FERRITIN 194 NG/ML (26-388); FOLATE 17.2 NG/ML (>5.2); IRON, SERUM 28 MCG/DL (35-150); PHOSPHORUS, SERUM 3.1 MG/DL (2.5-4.5)
[2017-02-05 21:25] LABS: PROCALCITONIN <0.05 ng/mL (<0.5)
[2017-02-05 22:05] LABS: HEMATOCRIT 22.7 % (40.0-51.0); HEMOGLOBIN 7.3 g/dL (13.6-17.8)
[2017-02-05 22:14] LABS: INTERNATIONAL NORMAL RATI 1.3 UNITS (-); PROTIME (NOT ORD) 15.6 SEC (12.0-14.5)
[2017-02-06 05:04] LABS: BASOPHILS 0.2 %; BASOPHILS ABSOLUTE 0.01 10/3/uL (0.0-0.16); EOSINOPHILS 0.2 %; EOSINOPHILS ABSOLUTE 0.01 10/3/uL (0.0-0.53); IMMATURE GRANULOCYTES 0.7 %; IMMATURE GRANULOCYTES ABSOLUTE 0.04 10/3/uL (0.0-0.11); LYMPHOCYTES 8.9 %; LYMPHOCYTES ABSOLUTE 0.48 10/3/uL (0.67-4.30); MEAN CORPUS HGB CONC 33.1 g/dL (32.0-36.0); MEAN CORPUSCULAR HEMOGLOB 30.1 pg (26.0-34.0); MEAN CORPUSCULAR VOLUME 91.1 fL (80-100); MEAN PLATELET VOLUME 8.1 fL (9.2-13.0); MONOCYTES 1.5 %; MONOCYTES ABSOLUTE 0.08 10/3/uL (0.21-1.20); NEUTROPHILS 88.5 %; NEUTROPHILS ABSOLUTE 4.76 10/3/uL (2.02-8.40); PLATELET COUNT 184 10/3/uL (150-400); RBC DISTRIBUTION WIDTH 15.4 % (12.0-16.0); RED CELL COUNT 3.02 10/6/uL (4.7-6.1); WHITE BLOOD CELLS 5.4 10/3/uL (4.5-10.5)
[2017-02-06 05:06] LABS: HEMATOCRIT 27.5 % (40.0-51.0); HEMOGLOBIN 9.1 g/dL (13.6-17.8); MANUAL DIFF NO %
[2017-02-06 05:21] LABS: BUN (BLOOD UREA NITROGEN) 16 MG/DL (6-23); CALCIUM, SERUM 8.7 MG/DL (8.5-10.4); CHLORIDE, SERUM 108 MMOL/L (96-112); CO2 (CARBON DIOXIDE) 27 MMOL/L (24-34); CREATININE 0.92 MG/DL (0.70-1.30); GFR AFRICAN AMERICAN 86 ML/MIN (>=60); GFR NON AFRICAN AMERICAN 74 ML/MIN (>=60); GLUCOSE, SERUM 197 MG/DL (60-99); POTASSIUM, SERUM 4.5 MMOL/L (3.5-5.3); SODIUM, SERUM 142 MMOL/L (135-148)
[2017-02-06 05:33] LABS: INTERNATIONAL NORMAL RATI 1.2 UNITS (-); PROTIME (NOT ORD) 15.2 SEC (12.0-14.5)
[2017-02-06 09:13] LABS: HEMOGLOBIN 10.2 g/dL (13.6-17.8)
[2017-02-06 09:15] LABS: HEMATOCRIT 30.5 % (40.0-51.0)
[2017-02-07 07:41] LABS: BASOPHILS 0 %; EOSINOPHILS 0 %; HEMATOCRIT 29.3 % (40.0-51.0); HEMOGLOBIN 9.6 g/dL (13.6-17.8); IMMATURE GRANULOCYTES 0.3 %; IMMATURE GRANULOCYTES ABSOLUTE 0.02 10/3/uL (0.0-0.11); LYMPHOCYTES 9.2 %; LYMPHOCYTES ABSOLUTE 0.64 10/3/uL (0.67-4.30); MEAN CORPUS HGB CONC 32.8 g/dL (32.0-36.0); MEAN CORPUSCULAR HEMOGLOB 29.5 pg (26.0-34.0); MEAN CORPUSCULAR VOLUME 90.2 fL (80-100); MEAN PLATELET VOLUME 8.6 fL (9.2-13.0); MONOCYTES 8.2 %; MONOCYTES ABSOLUTE 0.57 10/3/uL (0.21-1.20); NEUTROPHILS 82.3 %; NEUTROPHILS ABSOLUTE 5.74 10/3/uL (2.02-8.40); PLATELET COUNT 185 10/3/uL (150-400); RBC DISTRIBUTION WIDTH 15.4 % (12.0-16.0); RED CELL COUNT 3.25 10/6/uL (4.7-6.1)
[2017-02-07 07:43] LABS: MANUAL DIFF NO %
[2017-02-07 07:50] LABS: CALCIUM, SERUM 8.5 MG/DL (8.5-10.4); CHLORIDE, SERUM 110 MMOL/L (96-112); CO2 (CARBON DIOXIDE) 28 MMOL/L (24-34); CREATININE 1.21 MG/DL (0.70-1.30); GFR AFRICAN AMERICAN 62 ML/MIN (>=60); GFR NON AFRICAN AMERICAN 53 ML/MIN (>=60); POTASSIUM, SERUM 4.7 MMOL/L (3.5-5.3); SODIUM, SERUM 144 MMOL/L (135-148)
[2017-02-07 07:53] LABS: BUN (BLOOD UREA NITROGEN) 22 MG/DL (6-23); GLUCOSE, SERUM 240 MG/DL (60-99)
[2017-02-08 05:27] LABS: BASOPHILS 0.2 %; BASOPHILS ABSOLUTE 0.01 10/3/uL (0.0-0.16); EOSINOPHILS ABSOLUTE 0.11 10/3/uL (0.0-0.53); HEMATOCRIT 28.4 % (40.0-51.0); HEMOGLOBIN 9.4 g/dL (13.6-17.8); IMMATURE GRANULOCYTES 0.4 %; IMMATURE GRANULOCYTES ABSOLUTE 0.02 10/3/uL (0.0-0.11); LYMPHOCYTES 20.4 %; LYMPHOCYTES ABSOLUTE 1.14 10/3/uL (0.67-4.30); MEAN CORPUS HGB CONC 33.1 g/dL (32.0-36.0); MEAN CORPUSCULAR HEMOGLOB 30.1 pg (26.0-34.0); MEAN PLATELET VOLUME 8.2 fL (9.2-13.0); MONOCYTES 7.7 %; MONOCYTES ABSOLUTE 0.43 10/3/uL (0.21-1.20); NEUTROPHILS 69.3 %; NEUTROPHILS ABSOLUTE 3.89 10/3/uL (2.02-8.40); PLATELET COUNT 161 10/3/uL (150-400); RBC DISTRIBUTION WIDTH 15.4 % (12.0-16.0); RED CELL COUNT 3.12 10/6/uL (4.7-6.1); WHITE BLOOD CELLS 5.6 10/3/uL (4.5-10.5)
[2017-02-08 05:29] LABS: MANUAL DIFF NO %
[2017-02-09 05:12] LABS: HEMOGLOBIN 9.8 g/dL (13.6-17.8)
[2017-02-09] MEDS ORDERED: PROTONIX PO (11:11)
[2017-02-09] MEDS ORDERED: ACETSUP325 PR (11:14)
[2017-04-06] MEDS ORDERED: PREV15 PO (21:01)
[2017-04-06] MEDS ORDERED: CRESTOR20 MG PO (21:01)
[2017-04-06] MEDS ORDERED: LANTUS SC (21:02)
[2017-04-06] MEDS ORDERED: ALTA2.5 PO (21:02)
[2017-04-06] MEDS ORDERED: CENTRUM PO (21:02)
[2017-04-06] MEDS ORDERED: CYMBALTA60 PO (21:02)
[2017-04-06] MEDS ORDERED: HUMALOG SC (21:02)
[2017-04-06] MEDS ORDERED: NAMENDA10 MG PO (21:02)
[2017-04-06] MEDS ORDERED: SIN25 PO (21:03)
[2017-04-06] MEDS ORDERED: DUONEB INH (21:03)
[2017-04-06] MEDS ORDERED: L20 PO ×2 (21:03→21:04)
[2017-04-06] MEDS ORDERED: CARTIA XT240 MG/24 PO (21:03)
[2017-04-06] MEDS ORDERED: KDUR10 PO ×2 (21:04→21:05)
[2017-04-06] MEDS ORDERED: CEFT5 PO (21:05)
[2017-04-06] MEDS ORDERED: VITAMIN D400 UNI1 PO (21:05)
[2017-04-06] MEDS ORDERED: ASAB PO (21:05)
[2017-04-20] MEDS ORDERED: SIN25 PO (00:02)
[2017-04-20] MEDS ORDERED: DUONEB INH (00:02)
[2017-04-20] MEDS ORDERED: ASAB PO (00:02)
[2017-04-20] MEDS ORDERED: HUMALOG SC (00:03)
[2017-04-20] MEDS ORDERED: CARTIA XT240 MG/24 PO (00:03)
[2017-04-20] MEDS ORDERED: LANTUS SC (00:03)
[2017-04-20] MEDS ORDERED: CYMBALTA60 PO (00:03)
[2017-04-20] MEDS ORDERED: MONODOX100 MG PO (00:04)
[2017-04-20] MEDS ORDERED: CRESTOR20 MG PO (00:05)
[2017-04-20] MEDS ORDERED: FERROUS SULF325 M1 PO (00:05)
[2017-04-20] MEDS ORDERED: MULTIVIT/MIN PO (00:05)
[2017-04-20] MEDS ORDERED: MAXIMUM D3 PO (00:05)
[2017-04-20] MEDS ORDERED: SYN.05 PO (00:05)
[2017-04-20] MEDS ORDERED: KLOR-CON 1010 MEQ PO (00:05)
[2017-04-20] MEDS ORDERED: PREV15 PO (00:06)
[2017-04-20] MEDS ORDERED: NAMENDA10 MG PO (00:06)
[2017-04-20] MEDS ORDERED: L20 PO (00:06)
== END 2017-02-09 17:34 | disposition home health service (06) | DRG 811 ==
LOC: ER 11:43 → 1SO 16:56
PROVIDERS: Emergency Medicine; Hospitalist; Internal Medicine
PROC: 30233N1 Transfusion of Nonautologous Red Blood Cells into Peripheral Vein, Percutaneous Approach (ICD-10-PCS; principal; 2017-02-06)
DX: D64.9 Anemia, unspecified (principal); J69.0 Pneumonitis due to inhalation of food and vomit; J96.10 Chronic respiratory failure, unspecified whether with hypoxia or hypercapnia; G20 Parkinson's disease; E11.22 Type 2 diabetes mellitus with diabetic chronic kidney disease; I48.0 Paroxysmal atrial fibrillation; G62.9 Polyneuropathy, unspecified; Z99.81 Dependence on supplemental oxygen; I12.9 Hypertensive chronic kidney disease with stage 1 through stage 4 chronic kidney disease, or unspecified chronic kidney disease; J44.9 Chronic obstructive pulmonary disease, unspecified; F02.80 Dementia in other diseases classified elsewhere, unspecified severity, without behavioral disturbance, psychotic disturbance, mood disturbance, and anxiety; N18.9 Chronic kidney disease, unspecified; E78.5 Hyperlipidemia, unspecified; I25.10 Atherosclerotic heart disease of native coronary artery without angina pectoris; K21.9 Gastro-esophageal reflux disease without esophagitis; Z66 Do not resuscitate; Z79.82 Long term (current) use of aspirin; Z79.4 Long term (current) use of insulin; Z79.899 Other long term (current) drug therapy; Z87.891 Personal history of nicotine dependence; Z87.01 Personal history of pneumonia (recurrent); Z95.1 Presence of aortocoronary bypass graft; Z87.440 Personal history of urinary (tract) infections; Z88.8 Allergy status to other drugs, medicaments and biological substances; Z86.19 Personal history of other infectious and parasitic diseases
CPT/HCPCS: 36415; 36600; 71010; 80048; 80076; 81001; 82607; 82728; 82746; 82805; 82962; 83036; 83540; 83605; 83735; 83880; 84100; 84145; 84439; 84443; 84484; 85014; 85018; 85025; 85610; 85730; 86850; 86900; 86901; 86920; 87040; 93005; 94640; 97110-GP; 97162-GP; 97530-GP; 99285; A9270-GY; C9113; G8978-CL-GP; G8979-CK-GP; J1940; J2543; J2920; P9016